=== PATIENT | female | born 1980 | race Caucasian/White ===

== ENCOUNTER 2020-06-18 22:11 | Inpatient (IN) ==
[2020-06-18] MEDS ORDERED: CEFEPIME 2,000 MG/20 ML VIAL IV STA (22:38)
[2020-06-18] MEDS ORDERED: DAPTOmycin 500 MG in SYRINGE 0 ML IV ONE (22:38)
[2020-06-18] MEDS ORDERED: ONDANSETRON INJ 2 MG/ML 2 ML VIAL IV STA (22:41)
[2020-06-18] MEDS ORDERED: SODIUM CHLORIDE 0.9% 1000ML 1,000 ML IV SCH ×3 (22:45→23:39)
[2020-06-18 22:50] LABS: Basophils # (auto) 0.02 K/uL (0-0.2); Basophils % (auto) 0.2 %; Eosinophils # (auto) 0.06 K/uL (0-0.5); Eosinophils % (auto) 0.5 %; Hematocrit (blood only) 28.7 % (37-47); Hemoglobin 9.3 g/dL (12.0-16.0); Immature Granulocytes # (auto) 0.03 K/uL (0.00-0.02); Immature Granulocytes % (auto) 0.3 %; Lymphocytes # (auto) 0.79 K/uL (1.2-3.4); Mean Corpuscular Hemoglobin 27.1 pg (25-34); Mean Corpuscular Hgb Conc 32.4 g/dL (32-36); Mean Corpuscular Volume 83.7 fL (80-100); Mean Platelet Volume 8.8 fL (7.4-10.4); Monocytes # (auto) 0.75 K/uL (0.11-0.59); Monocytes % (auto) 6.6 %; Neutrophils # (auto) 9.63 K/uL (1.4-6.5); Neutrophils % (auto) 85.4 %; Platelet Count 530 K/uL (130-400); RDW Coefficient of Variation 14.4 % (11.5-14.5); RDW Standard Deviation 44.1 fL (36.4-46.3); Red Blood Count 3.43 M/uL (4.2-5.4); White Blood Count 11.28 K/uL (4.8-10.8)
[2020-06-18] MEDS: HYDROmorphone INJ 1 MG/ML SYRINGE IV PRN ×2 (22:56→23:31)
[2020-06-18 23:01] LABS: INR 1.1 (0.9-1.1); Partial Thromboplastin Ratio 1.2; Partial Thromboplastin Time 33.9 Seconds (21.0-31.0); Prothrombin Time 11.4 Seconds (9.0-12.0)
[2020-06-18 23:04] LABS: Albumin Level 2.8 gm/dl (3.4-5.0); BUN Creatinine Ratio 17.2 (10-20); Calcium 9.3 mg/dl (8.5-10.1); Creatinine Clr Calc Pharmacy 107.6 ml/min; Est GFR (African American) 97.3; Est GFR (Non-African American) 83.9; Magnesium 1.4 mg/dl (1.8-2.4); Potassium 3.9 mmol/L (3.5-5.1)
[2020-06-18 23:07] LABS: Albumin Globulin Ratio 0.5 (0.9-2); Bilirubin,Total 0.3 mg/dl (0.2-1); Globulin 5.5 gm/dl (2.5-4.0); Total Protein 8.3 gm/dl (6.4-8.2)
[2020-06-18] MEDS ORDERED: ACETAMINOPHEN 500 MG TAB PO STA (23:27)
[2020-06-18] MEDS ORDERED: MAGNESIUM SULFATE / D5W 1 GM/100 ML BAG IV STA (23:29)
--- NOTE | 2020-06-18 23:35 | Emergency Department Note ---
Impression & Plan Sepsis, Pyelonephritis, Pelvic mass, Obstructive uropathy ED Provider Note INFORMANT: Patient ED PROVIDER(S): Sascha Louis MD CHIEF COMPLAINT: Fever PLAN: Disposition: Admitted Condition: Guarded MEDICAL DECISION MAKING: Patient presented emergency department because she has fever and abdominal pain. She was treated for sepsis given her tachycardia and fever. She was given Tylenol. IV fluids were initiated. The patient had her port accessed. Cultures were done. She was found to have a leukocytosis, anemia, and unremarkable chemistries. Her lactate was within normal limits. Procalcitonin was not significantly elevated. Urinalysis was very concerning for infection. She was treated with Zofran and Dilaudid. She was given broad-spectrum antibiotics with cefepime and daptomycin. The patient had a CT scan performed and this was very concerning for a large right pelvic mass causing obstruction on the right ureter and subsequent hydronephrosis. I did attempt to get old records from the [facility] admission. She had a consultation placed with Dr. Rios of urology and he felt that a stent was emergently needed. I also consulted with of EMR TRAINER. He noted OB consultation would be necessary as well. We discussed getting an ultrasound to further evaluate this pelvic mass. He did review the images and felt it was likely coming from the uterus. The patient was seen in the ER by Dr. Rios. I also consulted with Dr. Jerrod Ramon of the hospitalist service. He did evaluate the patient in the ER as well. He will admit the patient and specialty will consult. I did obtain old records and she was noted to have an E. coli UTI. This was concerning as it was an ESBL infection. Therefore the patient was given ertapenem IV. Triage Nursing notes reviewed and agree them. Vital Signs: reviewed and remarkable for tachycardia and fever Differential diagnosis: Viral syndrome, otitis, pharyngitis, pneumonia, influenza, meningitis, urinary tract infection, sepsis, bacteremia, as well as other pathologies. Diagnostics interpreted by me: Cardiac Monitoring: Cardiac monitoring ordered by me: The patient was placed on continuous cardiac monitoring and observed. It revealed a sinus tachycardic rhythm at 115 beats per minute without ectopy or evidence of dysrhythmia. Imaging studies: Imaging studies: Chest x-ray. Findings: A chest x-ray was performed and revealed no pneumothorax, effusion, infiltrate, pulmonary edema, free air under the diaphragm, or wide mediastinum. Mediport noted in the right upper chest. Impression: No acute disease. HPI: The patient is a 39 year old female with past medical history of colorectal cancer and ostomy who presents to the Emergency Room with complaints of fever. This started today and is persisting throughout the evening. The patient also notes the following associated symptoms, nausea, right lower quadrant abdominal pain, fatigue. The patient has found no relieving factors. Current pain is rated as 8/10. Patient has a history of colorectal cancer. She states her last chemo was 3 months ago. She has had a new port placed in the chest. It has not been accessed to this point. She did have orthopedic surgery at the beginning of this month on the left leg for a fall and fracture. She is [facility] She states she was tested negative for Covid 5 days ago. Pt denies LOC, headache, diaphoresis, visual changes, neck pain, chest pain, breathing difficulties, vomiting, back pain, melena, hematochezia, urinary symptoms, numbness, lymphadenopathy, rash, or other complaints. ROS: See above HPI for pertinent positives & negatives. A total of 10 systems reviewed and were otherwise negative. PAST MEDICAL HISTORY:See Below , colorectal cancer PAST SURGICAL HISTORY:See Below, ORIF left foot, ostomy, Mediport FAMILY HISTORY:See Below SOCIAL HISTORY:See Below, no alcohol HOME MEDICATIONS:See Below ALLERGIES:See Below VITALS:See Below PHYSICAL EXAMINATION: GENERAL: Awake, alert, uncomfortable-appearing, in no distress HENT: Normocephalic, atraumatic. Oropharynx unremarkable. EYES: Normal conjunctiva. Sclera non-icteric. NECK: Inspection normal. Non-tender. Supple. No nuchal rigidity. FROM. No masses. RESPIRATORY: Clear to auscultation. No wheezes. No rales. Normal respiratory effort. CARDIAC: Moderately tachycardic rate. Normal rhythm. No murmurs. No rubs. Extremities warm and well perfused. Pulses equal. No JVD. GI: Soft, non-distended. Ostomy noted in the right lower side. Right lower tenderness to palpation. No rebound but mild guarding. No masses. RECTAL: Deferred. MUSCULOSKELETAL: Atraumatic. Chest examination reveals no tenderness. The back is symmetrical on inspection without obvious abnormality. There is no CVA tenderness to palpation. No joint edema. LOWER EXTREMITIES: Calves are equal size bilaterally and non-tender. No discoloration. Trace edema noted. The patient's incision on the left foot looks clean dry and intact. No cellulitis. NEURO: Normal sensorium. No sensory or motor deficits noted. SKIN: No rash or jaundice noted. ED COURSE: Critical Care: I have personally spent greater than 76 minutes of critical care time in the direct management of this patient. This includes bedside care, interpretation of diagnostic studies, and testing, discussion with consultants, patient, and family members, and other required patient management activities. These minutes are in excess of all separately billable procedures. Sascha Louis MD Past Med/Surg History Medical History (Updated 06/19/20 @ 02:16 by Sascha Louis MD) Colorectal cancer Crohn disease Pulmonary embolism Social History Smoking Status: Never smoker Preferred Language: Danish Feels Safe at Home: Yes Allergies Allergies Allergy/AdvReac Type Severity Reaction Status Date / Time vancomycin Allergy Unknown Throat Verified 06/18/20 22:43 closes ibuprofen AdvReac Unknown Crohns Verified 06/18/20 22:43 flare Home Meds Home Medications Medication Instructions Recorded Confirmed acetaminophen 650 mg PO Q4H PRN 06/18/20 06/18/20 alprazolam 0.25 mg PO TID PRN 06/18/20 06/18/20 amlodipine 5 mg PO DAILY 06/18/20 06/18/20 ascorbic acid (vitamin C) 500 mg PO BID 06/18/20 06/18/20 azathioprine 50 mg PO DAILY 06/18/20 06/18/20 bisacodyl 10 mg DC DAILY PRN 06/18/20 06/18/20 cholecalciferol (vitamin D3) 50 mcg PO DAILY 06/18/20 06/18/20 [Vitamin D3] clotrimazole 1 appful VAGINAL HS 06/18/20 06/18/20 docusate sodium 100 mg PO BID 06/18/20 06/18/20 enoxaparin 120 mg SUBCUT BID 06/18/20 06/18/20 famotidine 20 mg PO DAILY 06/18/20 06/18/20 fluoxetine 60 mg PO DAILY 06/18/20 06/18/20 gabapentin 200 mg PO DAILY 06/18/20 06/18/20 levothyroxine 100 mcg PO DAILY 06/18/20 06/18/20 lisinopril 20 mg PO DAILY 06/18/20 06/18/20 magnesium hydroxide [Milk of 30 ml PO DAILY PRN 06/18/20 06/18/20 Magnesia] melatonin 3 mg PO HS 06/18/20 06/18/20 norethindrone acetate 5 mg PO DAILY 06/18/20 06/18/20 nystatin 1 applic TOPICAL BID PRN 06/18/20 06/18/20 oxycodone 20 mg PO Q4H PRN 06/18/20 06/18/20 oxycodone 40 mg PO Q12H 06/18/20 06/18/20 pantoprazole 40 mg PO DAILYBB 06/18/20 06/18/20 polyethylene glycol 3350 17 g PO DAILY PRN 06/18/20 06/18/20 prochlorperazine maleate 5 mg PO Q6H PRN 06/18/20 06/18/20 sennosides-docusate sodium 1 tab PO DIRECTED PRN 06/18/20 06/18/20 [Senokot-S] sodium phosphates [Fleet Enema] 133 ml DC DAILY PRN 06/18/20 06/18/20 trazodone 200 mg PO HS PRN 06/18/20 06/18/20 zinc sulfate 220 mg PO DAILY 06/18/20 06/18/20 Results & Data (ED) Vital Signs Vital Signs - 24 hr 06/18/20 22:42 06/18/20 22:50 06/18/20 23:00 Temperature 39.5 C H Temperature Source Oral Pulse Rate 123 H Pulse Rate [Right Finger] 130 H 116 H Pulse Rate from SpO2 Sensor Pulse Rhythm Regular Pulse Rhythm [Right Finger] Regular Regular Pulse Strength Normal Pulse Strength [Right Finger] Normal Normal Respiratory Rate 22 22 20 Respiratory Effort / Characteristics Non-Labored Non-Labored Spontaneous Respiratory Depth Normal Blood Pressure 126/93 Blood Pressure [Right Arm] 126/93 126/93 Blood Pressure Mean 104 Blood Pressure Mean [Right Arm] 104 104 Blood Pressure Position Sitting Pulse Oximetry 97 97 97 Oxygen Delivery Method Room Air Room Air Room Air Sepsis Recent Fever Within 48 Hours Yes Sepsis New/Unexplained Change in Mental Status N/A Sepsis Action Taken by Nursing Physician Notified 06/18/20 23:43 06/19/20 00:00 06/19/20 00:30 Temperature Temperature Source Pulse Rate 115 H 123 H Pulse Rate [Right Finger] Pulse Rate from SpO2 Sensor 115 H 124 H Pulse Rhythm Pulse Rhythm [Right Finger] Pulse Strength Pulse Strength [Right Finger] Respiratory Rate 15 15 Respiratory Effort / Characteristics Respiratory Depth Blood Pressure 126/93 121/80 136/74 Blood Pressure [Right Arm] Blood Pressure Mean 108 99 99 Blood Pressure Mean [Right Arm] Blood Pressure Position Pulse Oximetry 95 96 Oxygen Delivery Method Sepsis Recent Fever Within 48 Hours Sepsis New/Unexplained Change in Mental Status Sepsis Action Taken by Nursing 06/19/20 00:55 Temperature 39.2 C H Temperature Source Oral Pulse Rate Pulse Rate [Right Finger] Pulse Rate from SpO2 Sensor Pulse Rhythm Pulse Rhythm [Right Finger] Pulse Strength Pulse Strength [Right Finger] Respiratory Rate Respiratory Effort / Characteristics Respiratory Depth Blood Pressure Blood Pressure [Right Arm] Blood Pressure Mean Blood Pressure Mean [Right Arm] Blood Pressure Position Pulse Oximetry Oxygen Delivery Method Sepsis Recent Fever Within 48 Hours Sepsis New/Unexplained Change in Mental Status Sepsis Action Taken by Nursing Laboratory Data Result diagrams: 06/18/20 22:35 06/18/20 22:35 Lab Results 06/18/20 06/18/20 06/18/20 Range/Units 22:35 22:35 22:35 WBC 11.28 H (4.8-10.8) K/uL RBC 3.43 L (4.2-5.4) M/uL Hgb 9.3 L (12.0-16.0) g/dL Hct 28.7 L (37-47) % MCV 83.7 (80-100) fL MCH 27.1 (25-34) pg MCHC 32.4 (32-36) g/dL RDW Std Deviation 44.1 (36.4-46.3) fL RDW Coeff of Angélica 14.4 (11.5-14.5) % Plt Count 530 H (130-400) K/uL MPV 8.8 (7.4-10.4) fL Immature Gran % (Auto) 0.3 % Neut % (Auto) 85.4 % Lymph % (Auto) 7.0 % Newton % (Auto) 6.6 % Eos % (Auto) 0.5 % Baso % (Auto) 0.2 % Neut # (Auto) 9.63 H (1.4-6.5) K/uL Lymph # (Auto) 0.79 L (1.2-3.4) K/uL Newton # (Auto) 0.75 H (0.11-0.59) K/uL Eos # (Auto) 0.06 (0-0.5) K/uL Baso # (Auto) 0.02 (0-0.2) K/uL Immature Gran # (Auto) 0.03 H (0.00-0.02) K/uL PT 11.4 (9.0-12.0) Seconds INR 1.1 (0.9-1.1) APTT 33.9 H (21.0-31.0) Seconds PTT Ratio 1.2 Sodium (136-145) mmol/L Potassium (3.5-5.1) mmol/L Chloride (98-107) mmol/L Carbon Dioxide (21-32) mmol/L Anion Gap (3-11) BUN (7-18) mg/dl Creatinine (0.6-1.2) mg/dl Est Cr Clr Drug Dosing ml/min Est GFR ( Amer) Est GFR (Non-Af Amer) BUN/Creatinine Ratio (10-20) Glucose (70-99) mg/dl Lactate (0.4-2.0) mmol/L Calcium (8.5-10.1) mg/dl Magnesium (1.8-2.4) mg/dl Total Bilirubin (0.2-1) mg/dl AST (15-37) U/L ALT (12-78) U/L Alkaline Phosphatase (45-117) U/L Total Protein (6.4-8.2) gm/dl Albumin (3.4-5.0) gm/dl Globulin (2.5-4.0) gm/dl Albumin/Globulin Ratio (0.9-2) Procalcitonin 0.09 (0-0.5) ng/ml HCG, Qual (Negative) Urine Color Urine Appearance (Clear) Urine pH (4.5-7.5) Ur Specific Jameson (1.000-1.030) Urine Protein (Negative) Urine Glucose (UA) (Negative) Urine Ketones (Negative) Urine Blood (Negative) Urine Nitrite (Negative) Urine Bilirubin (Negative) Urine Urobilinogen (Negative) Ur Leukocyte Esterase (Negative) Urine WBC (Auto) (0-5) /hpf Urine RBC (Auto) (0-4) /hpf U Hyaline Cast (Auto) (0-5) /lpf U Epithel Cells (Auto) (0-5) /lpf Urine Bacteria (Auto) (Negative) COVID-19 Eval Order SARS-CoV-2, RNA, NAAT (NEGATIVE) 06/18/20 06/18/20 06/18/20 Range/Units 22:35 22:35 22:35 WBC (4.8-10.8) K/uL RBC (4.2-5.4) M/uL Hgb (12.0-16.0) g/dL Hct (37-47) % MCV (80-100) fL MCH (25-34) pg MCHC (32-36) g/dL RDW Std Deviation (36.4-46.3) fL RDW Coeff of Angélica (11.5-14.5) % Plt Count (130-400) K/uL MPV (7.4-10.4) fL Immature Gran % (Auto) % Neut % (Auto) % Lymph % (Auto) % Newton % (Auto) % Eos % (Auto) % Baso % (Auto) % Neut # (Auto) (1.4-6.5) K/uL Lymph # (Auto) (1.2-3.4) K/uL Newton # (Auto) (0.11-0.59) K/uL Eos # (Auto) (0-0.5) K/uL Baso # (Auto) (0-0.2) K/uL Immature Gran # (Auto) (0.00-0.02) K/uL PT (9.0-12.0) Seconds INR (0.9-1.1) APTT (21.0-31.0) Seconds PTT Ratio Sodium 134 L (136-145) mmol/L Potassium 3.9 (3.5-5.1) mmol/L Chloride 103 (98-107) mmol/L Carbon Dioxide 23 (21-32) mmol/L Anion Gap 8.0 (3-11) BUN 15 (7-18) mg/dl Creatinine 0.87 (0.6-1.2) mg/dl Est Cr Clr Drug Dosing 107.6 ml/min Est GFR ( Amer) 97.3 Est GFR (Non-Af Amer) 83.9 BUN/Creatinine Ratio 17.2 (10-20) Glucose 123 H (70-99) mg/dl Lactate 1.2 (0.4-2.0) mmol/L Calcium 9.3 (8.5-10.1) mg/dl Magnesium 1.4 L (1.8-2.4) mg/dl Total Bilirubin 0.3 (0.2-1) mg/dl AST 31 (15-37) U/L ALT 30 (12-78) U/L Alkaline Phosphatase 180 H (45-117) U/L Total Protein 8.3 H (6.4-8.2) gm/dl Albumin 2.8 L (3.4-5.0) gm/dl Globulin 5.5 H (2.5-4.0) gm/dl Albumin/Globulin Ratio 0.5 L (0.9-2) Procalcitonin (0-0.5) ng/ml HCG, Qual Negative (Negative) Urine Color Urine Appearance (Clear) Urine pH (4.5-7.5) Ur Specific Jameson (1.000-1.030) Urine Protein (Negative) Urine Glucose (UA) (Negative) Urine Ketones (Negative) Urine Blood (Negative) Urine Nitrite (Negative) Urine Bilirubin (Negative) Urine Urobilinogen (Negative) Ur Leukocyte Esterase (Negative) Urine WBC (Auto) (0-5) /hpf Urine RBC (Auto) (0-4) /hpf U Hyaline Cast (Auto) (0-5) /lpf U Epithel Cells (Auto) (0-5) /lpf Urine Bacteria (Auto) (Negative) COVID-19 Eval Order SARS-CoV-2, RNA, NAAT (NEGATIVE) 06/18/20 06/19/20 06/19/20 Range/Units 23:27 00:54 00:54 WBC (4.8-10.8) K/uL RBC (4.2-5.4) M/uL Hgb (12.0-16.0) g/dL Hct (37-47) % MCV (80-100) fL MCH (25-34) pg MCHC (32-36) g/dL RDW Std Deviation (36.4-46.3) fL RDW Coeff of Angélica (11.5-14.5) % Plt Count (130-400) K/uL MPV (7.4-10.4) fL Immature Gran % (Auto) % Neut % (Auto) % Lymph % (Auto) % Newton % (Auto) % Eos % (Auto) % Baso % (Auto) % Neut # (Auto) (1.4-6.5) K/uL Lymph # (Auto) (1.2-3.4) K/uL Newton # (Auto) (0.11-0.59) K/uL Eos # (Auto) (0-0.5) K/uL Baso # (Auto) (0-0.2) K/uL Immature Gran # (Auto) (0.00-0.02) K/uL PT (9.0-12.0) Seconds INR (0.9-1.1) APTT (21.0-31.0) Seconds PTT Ratio Sodium (136-145) mmol/L Potassium (3.5-5.1) mmol/L Chloride (98-107) mmol/L Carbon Dioxide (21-32) mmol/L Anion Gap (3-11) BUN (7-18) mg/dl Creatinine (0.6-1.2) mg/dl Est Cr Clr Drug Dosing ml/min Est GFR ( Amer) Est GFR (Non-Af Amer) BUN/Creatinine Ratio (10-20) Glucose (70-99) mg/dl Lactate (0.4-2.0) mmol/L Calcium (8.5-10.1) mg/dl Magnesium (1.8-2.4) mg/dl Total Bilirubin (0.2-1) mg/dl AST (15-37) U/L ALT (12-78) U/L Alkaline Phosphatase (45-117) U/L Total Protein (6.4-8.2) gm/dl Albumin (3.4-5.0) gm/dl Globulin (2.5-4.0) gm/dl Albumin/Globulin Ratio (0.9-2) Procalcitonin (0-0.5) ng/ml HCG, Qual (Negative) Urine Color Yellow Urine Appearance Cloudy A (Clear) Urine pH 5.0 (4.5-7.5) Ur Specific Jameson 1.017 (1.000-1.030) Urine Protein 2+ H (Negative) Urine Glucose (UA) Negative (Negative) Urine Ketones Negative (Negative) Urine Blood 3+ H (Negative) Urine Nitrite Positive A (Negative) Urine Bilirubin Negative (Negative) Urine Urobilinogen Negative (Negative) Ur Leukocyte Esterase 1+ H (Negative) Urine WBC (Auto) 10-30 H (0-5) /hpf Urine RBC (Auto) 0-4 (0-4) /hpf U Hyaline Cast (Auto) 1-5 (0-5) /lpf U Epithel Cells (Auto) >30 H (0-5) /lpf Urine Bacteria (Auto) 4+ H (Negative) COVID-19 Eval Order Covid19 [facility] SARS-CoV-2, RNA, NAAT NEGATIVE (NEGATIVE) Administered Medications Hydromorphone HCl (Hydromorphone Inj 1 Mg/Ml Syringe) 1 mg IV Q15M PRN PRN Reason: Pain Stop: 07/02/20 22:40 Last Admin: 06/19/20 01:01 Dose: 1 mg Documented by: [id number] Admin: 06/19/20 00:09 Dose: 1 mg Documented by: [id number] Admin: 06/18/20 23:31 Dose: 1 mg Documented by: [id number] Admin: 06/18/20 22:56 Dose: 1 mg Documented by: [id number] Sodium Chloride (Nss 1000ml) 1,000 mls @ 150 mls/hr IV .Q6H40M [facility] Stop: 07/18/20 22:44 Last Admin: 06/18/20 23:59 Dose: 150 mls/hr Documented by: [id number] Discontinued Medications Acetaminophen (Acetaminophen 500 Mg Tab) 1,000 mg PO NOW STA Stop: 06/18/20 23:28 Last Admin: 06/18/20 23:34 Dose: 1,000 mg Documented by: [id number] Sodium Chloride (Nss 1000ml) 1,000 mls @ 999 mls/hr IV .Q1H1M [facility] Stop: 06/18/20 23:39 Last Infusion: 06/18/20 23:58 Dose: 0 mls/hr Documented by: [id number] Admin: 06/18/20 22:57 Dose: 999 mls/hr Documented by: [id number] Sodium Chloride (Nss 1000ml) 1,000 mls @ 999 mls/hr IV .Q1H1M [facility] Stop: 06/19/20 00:39 Last Infusion: 06/18/20 23:58 Dose: 0 mls/hr Documented by: [id number] Admin: 06/18/20 22:57 Dose: 999 mls/hr Documented by: [id number] Cefepime HCl (Maxipime) 2,000 mg in 20 mls @ 5 mls/min IV NOW STA; Protocol Stop: 06/18/20 22:41 Last Admin: 06/18/20 23:06 Dose: 5 mls/min Documented by: [id number] Daptomycin 500 mg/ Syringe 10 mls @ 5 mls/min IV ONE ONE; Protocol Stop: 06/18/20 22:39 Last Admin: 06/18/20 23:06 Dose: 5 mls/min Documented by: [id number] Magnesium Sulfate/Dextrose (Magnesium Sulfate / D5w) 1 gm in 100 mls @ 100 mls/hr IV NOW STA Stop: 06/19/20 00:28 Last Infusion: 06/19/20 01:02 Dose: 0 mls/hr Documented by: [id number] Admin: 06/18/20 23:59 Dose: 100 mls/hr Documented by: [id number] Ertapenem (Invanz) 10 mls @ 2 mls/min IV NOW STA Stop: 06/19/20 01:45 Last Admin: 06/19/20 01:50 Dose: 2 mls/min Documented by: [id number] Ioversol (Ioversol 100ml) 100 ml IV ONCE ONE Stop: 06/18/20 23:58 Last Admin: 06/18/20 23:58 Dose: 92 ml Documented by: [id number] Ondansetron HCl (Ondansetron Inj 2 Mg/Ml 2 Ml Vial) 4 mg IV NOW STA Stop: 06/18/20 22:42 Last Admin: 06/18/20 22:56 Dose: 4 mg Documented by: [id number] Ondansetron HCl (Ondansetron Inj 2 Mg/Ml 2 Ml Vial) Confirm Administered Dose 4 mg .ROUTE .STK-MED ONE Stop: 06/19/20 00:58 Last Admin: 06/19/20 01:00 Dose: 4 mg Documented by: [id number] Ondansetron HCl (Ondansetron Inj 2 Mg/Ml 2 Ml Vial) 4 mg IV NOW STA Stop: 06/19/20 01:08 Last Admin: 06/19/20 01:07 Dose: Not Given Documented by: [id number] Discharge Plan Visit Data Chief Complaint: Fever Stated Complaint: FEVER ED Provider: Sascha Louis Discharge Problem: Sepsis, Pyelonephritis, Pelvic mass, Obstructive uropathy Discharge Instructions Interventions: ED Discharge Assessment Last Done: 06/19/20 01:44 Forms Stand Alone Forms: [facility] Prescriptions Prescriptions: No Action acetaminophen 325 mg Tablet 650 mg PO Q4H PRN (Reason: Pain) RF: 0 prochlorperazine maleate 5 mg Tablet 5 mg PO Q6H PRN (Reason: Nausea And Vomiting) RF: 0 lisinopril 20 mg Tablet 20 mg PO DAILY RF: 0 sennosides-docusate sodium [Senokot-S] 8.6-50 mg Tablet 1 tab PO DIRECTED PRN (Reason: Constipation) RF: 0 oxycodone 40 mg Tablet Extended Release 12 Hr 40 mg PO Q12H RF: 0 clotrimazole 1 % Cream 1 appful VAGINAL HS RF: 0 azathioprine 50 mg Tablet 50 mg PO DAILY RF: 0 melatonin 3 mg Tablet 3 mg PO HS RF: 0 amlodipine 5 mg Tablet 5 mg PO DAILY RF: 0 levothyroxine 100 mcg Tablet 100 mcg PO DAILY RF: 0 alprazolam 0.25 mg Tablet 0.25 mg PO TID PRN (Reason: Anxiety) RF: 0 famotidine 20 mg Tablet 20 mg PO DAILY RF: 0 magnesium hydroxide [Milk of Magnesia] 400 mg/5 mL Suspension 30 ml PO DAILY PRN (Reason: Constipation) RF: 0 ascorbic acid (vitamin C) 500 mg Tablet 500 mg PO BID RF: 0 trazodone 100 mg Tablet 200 mg PO HS PRN (Reason: Insomnia) RF: 0 bisacodyl 10 mg Suppository 10 mg DC DAILY PRN (Reason: Constipation) RF: 0 pantoprazole 40 mg Tablet,Delayed Release (Dr/Ec) 40 mg PO DAILYBB RF: 0 Fleet Enema 19-7 gram/118 mL Enema 133 ml DC DAILY PRN (Reason: Constipation) RF: 0 docusate sodium 100 mg Capsule 100 mg PO BID RF: 0 norethindrone acetate 5 mg Tablet 5 mg PO DAILY RF: 0 gabapentin 100 mg Capsule 200 mg PO DAILY RF: 0 nystatin 100,000 unit/gram Powder 1 applic TOPICAL BID PRN (Reason: Rash) RF: 0 polyethylene glycol 3350 17 gram/dose Powder 17 g PO DAILY PRN (Reason: Constipation) RF: 0 zinc sulfate 220 mg Capsule 220 mg PO DAILY RF: 0 fluoxetine 20 mg Capsule 60 mg PO DAILY RF: 0 oxycodone 5 mg Tablet 20 mg PO Q4H PRN (Reason: Pain) RF: 0 enoxaparin 120 mg/0.8 mL Syringe 120 mg SUBCUT BID RF: 0 cholecalciferol (vitamin D3) [Vitamin D3] 50 mcg (2,000 unit) Capsule 50 mcg PO DAILY RF: 0 Referrals Referrals: Nataly Limon PA-C [Primary Care Provider] -
[2020-06-18 23:44] LABS: Appearance Urine Cloudy (Clear); Bacteria Urine Automated 4+ (Negative); Bilirubin Urine Negative (Negative); Blood Urine 3+ (Negative); Color Urine Yellow; Epithelial Cell Urine Auto >30 /lpf (0-5); Glucose Urine UA Negative (Negative); Ketones Urine Negative (Negative); Leukocyte Esterase Urine 1+ (Negative); Nitrite Urine Positive (Negative); Protein Urine 2+ (Negative); RBC Urine Automated 0-4 /hpf (0-4); Specific Gravity Urine 1.017 (1.000-1.030); Urobilinogen Urine Negative (Negative)
[2020-06-18] MEDS ORDERED: IOVERSOL 100ml IV ONE (23:57)
[2020-06-19] MEDS: HYDROmorphone INJ 1 MG/ML SYRINGE IV PRN ×2 (00:09→01:01)
[2020-06-19] MEDS ORDERED: ONDANSETRON INJ 2 MG/ML 2 ML VIAL ONE ×2 (00:57→02:30)
[2020-06-19] MEDS ORDERED: ONDANSETRON INJ 2 MG/ML 2 ML VIAL IV STA (01:07)
[2020-06-19] MEDS ORDERED: ePHEDrine sulfate 50 MG/ML AMP IV PRN (01:32)
[2020-06-19] MEDS ORDERED: fentaNYL citrate 100 MCG/2 ML VIAL IV PRN (01:32)
[2020-06-19] MEDS ORDERED: ONDANSETRON INJ 2 MG/ML 2 ML VIAL IV PRN (01:32)
[2020-06-19] MEDS ORDERED: ATROPINE SULFATE 0.1 MG/ML 10ML SYR IV PRN (01:32)
[2020-06-19] MEDS ORDERED: PROPOFOL IV EMULSION 10 MG/ML 20 ML VIAL IV ONE ×2 (01:39→02:30)
--- NOTE | 2020-06-19 01:40 | Urology Consultation ---
Date of Consultation June 19, 2020 Assessment & Plan (1) Sepsis: (2) Pelvic mass: (3) Obstructive uropathy: Patient acutely ill with significant fevers, tachycardia, hypertension, and ill feelings with acute UTI-like symptoms and significant obstruction of the ureter. Imaging was reviewed interpreted by myself. Patient appears to have large fluid collection versus mass with fluid versus compressing lesion in the right pelvis causing compression of the bladder with likely compression of the right ureter. No significant hydroureteronephrosis down to the region of the mass/lesion. Significant perinephric stranding. Patient has had significant UTI issues over the last few months. Has a very complex medical and surgical history which was reviewed above with an extremely complicated set of issues secondary to colorectal malignancy. Patient also has recent trauma with left lower extremity fracture. Patient is being admitted to the ICU. Is undergoing resuscitation and management with broad-spectrum antibiotics for overall good coverage of possible resistant infection with critical management and close monitoring. Patient has likely external compression obstruction of the right ureter and collecting system. Discussed possible issues related to pyelonephritis with a sending infection and possibility for development of bacteremia. Patient is undergoing cultures. Discussed options moving forward. Discussed decompression of bladder as well as decompression of the collecting system on the right. Discussed options for this. Risks and benefits discussed at length for procedure. These include bleeding, infection, injury to surrounding tissues or organs, and risks associated with anesthesia. Patient states understanding and agrees to proceed. Will sign consent and proceed with urgent procedure. Cystoscopy with right stent placement History of Present Illness History of Present Illness Urgent/emergent consultation for acutely ill and septic patient with UTI/Pyelo, discomfort, and ill feelings. Patient developed sudden onset of pain into flank going down and radiating into groin and back in waves comes and goes. Can be severe at times. Obstruction seems secondary to large pelvic fluid filled appearing mass/collection within the right pelvis causing compression of the ureter and bladder. Patient has a significant history of malignancy with multiple interventions and resection and diverting colostomy secondary to colon cancer. Has had multiple episodes of likely pyelonephritis versus sepsis from urinary source over the last few months. Has had over 8 per patient. Has not had full work-up for these issues and had been treated with antibiotics which did seem to improve issues. Was recently admitted in outlying facility due to a injury of the foot which required treatment due to fracture. Patient was in a rehab setting and developed the severe fevers and worsening overall illness and was transferred urgently for assessment in our ER. Discussed and reviewed patient's personal medical, surgical, social, and family history for any history of issues, infections, and disease. Also, discussed patient's medical/surgery history especially related to any history of urinary issues or stone disease. Has not had previous intervention on the system but has had per patient over 39 different surgeries most of which were abdominal and related to her malignancy. No family history of malignancy. Patient is undergoing intense/critical management for acute illness and is being admitted to undergo critical care. Hospitalist/ICU team has admitted and is undergoing observation with broad spectrum IV antibiotics. Allergies Allergy/AdvReac Type Severity Reaction Status Date / Time vancomycin Allergy Unknown Throat Verified 06/18/20 22:43 closes ibuprofen AdvReac Unknown Crohns Verified 06/18/20 22:43 flare Home Medications Medication Instructions Recorded Confirmed Type acetaminophen 650 mg PO Q4H PRN 06/18/20 06/18/20 History alprazolam 0.25 mg PO TID PRN 06/18/20 06/18/20 History amlodipine 5 mg PO DAILY 06/18/20 06/18/20 History ascorbic acid (vitamin C) 500 mg PO BID 06/18/20 06/18/20 History azathioprine 50 mg PO DAILY 06/18/20 06/18/20 History bisacodyl 10 mg OH DAILY PRN 06/18/20 06/18/20 History cholecalciferol (vitamin D3) 50 mcg PO DAILY 06/18/20 06/18/20 History [Vitamin D3] clotrimazole 1 appful VAGINAL HS 06/18/20 06/18/20 History docusate sodium 100 mg PO BID 06/18/20 06/18/20 History enoxaparin 120 mg SUBCUT BID 06/18/20 06/18/20 History famotidine 20 mg PO DAILY 06/18/20 06/18/20 History fluoxetine 60 mg PO DAILY 06/18/20 06/18/20 History gabapentin 200 mg PO DAILY 06/18/20 06/18/20 History levothyroxine 100 mcg PO DAILY 06/18/20 06/18/20 History lisinopril 20 mg PO DAILY 06/18/20 06/18/20 History magnesium hydroxide [Milk of 30 ml PO DAILY PRN 06/18/20 06/18/20 History Magnesia] melatonin 3 mg PO HS 06/18/20 06/18/20 History norethindrone acetate 5 mg PO DAILY 06/18/20 06/18/20 History nystatin 1 applic TOPICAL BID PRN 06/18/20 06/18/20 History oxycodone 20 mg PO Q4H PRN 06/18/20 06/18/20 History oxycodone 40 mg PO Q12H 06/18/20 06/18/20 History pantoprazole 40 mg PO DAILYBB 06/18/20 06/18/20 History polyethylene glycol 3350 17 g PO DAILY PRN 06/18/20 06/18/20 History prochlorperazine maleate 5 mg PO Q6H PRN 06/18/20 06/18/20 History sennosides-docusate sodium 1 tab PO DIRECTED PRN 06/18/20 06/18/20 History [Senokot-S] sodium phosphates [Fleet Enema] 133 ml OH DAILY PRN 06/18/20 06/18/20 History trazodone 200 mg PO HS PRN 06/18/20 06/18/20 History zinc sulfate 220 mg PO DAILY 06/18/20 06/18/20 History Patient History Social History Smoking Status: Never smoker Preferred Language: Thai Feels Safe at Home: Yes Review of Systems Review of Systems: All systems reviewed & are unremarkable except as noted in HPI & below Limited due to patient illness. Significant UTI symptoms. Physical Exam Physical Exam: General: Acutely ill. Undergoing critical care management for acute severe infection HEENT: Normocephalic Atraumatic. Inspection normal. Cranial Nerves 2-12 Grossly intact. Nares are clear. Neck is supple. Normal inspection of face. Normal inspection of neck. Neurologic: No deficits on inspection. Baseline for motor function and sensory. Psychologic: Anxious, acute delirium secondary to illness Respiratory: Mild labored. No use of accessory muscles. No severe dyspnea. Cardiovascular: tachycardia Skin: Leeper and Dry. No rashes or visible lesions. Febrile Extremities: Moving without issues. No motor deficits on inspection. Left foot/leg cast/splint Lymphatics: Mild edema Abdomen: Obese. Mildly distended. No rebound or guarding. Mild suprapubic/flank tenderness. Multiple scars from prior surgery. Colostomy. Results & Data ([facility]) Vital Signs (Past 12 Hours) Vital Signs Temp Pulse Pulse Resp BP BP Pulse Ox 06/19/20 00:55 39.2 C H 06/19/20 00:30 123 H 15 136/74 96 06/19/20 00:00 115 H 15 121/80 95 06/18/20 23:43 126/93 06/18/20 23:00 116 H 20 126/93 97 06/18/20 22:50 130 H 22 126/93 97 06/18/20 22:42 39.5 C H 123 H 22 126/93 97 PG Care Time/CCT Total # of Minutes Spent Total Time Spent with Patient: Total time spent is greater than 50% in coordination of care (as documented) at patient's floor/unit and/or counseling patient: Coding Level of Care Code 38617 Inpt Consult Level 5 Diagnoses Sepsis A41.9 Pelvic mass R19.00 Obstructive uropathy N13.9
[2020-06-19] MEDS ORDERED: ERTAPENEM SODIUM 10 ML IV STA (01:41)
[2020-06-19] MEDS ORDERED: MIDAZOLAM HCL 1 MG/ML 2ML VIAL ONE ×2 (01:42→02:10)
[2020-06-19] MEDS ORDERED: fentaNYL citrate 100 MCG/2 ML VIAL ONE ×2 (01:42→02:19)
--- NOTE | 2020-06-19 01:44 | History & Physical Report ---
Date of Service June 19, 2020 Assessment & Plan (1) Pyelonephritis: Pyelonephritis secondary to obstructive uropathy associated with right adnexal mass/status post acute surgery by urology and ureteral stent- Daptomycin and cefepime per an empiric septic protocol NSS 100 mils per hour Consult urology Dr. Gabriel Singh from [facility] was consulted by the ED regarding right lower quadrant mass Present on Admission?: Yes (2) Obstructive uropathy: See above Present on Admission?: Yes (3) Pelvic mass: Consult [facility] Present on Admission?: Yes (4) Pulmonary embolism: Holding therapeutic Lovenox due to procedures being performed Present on Admission?: Yes (5) Crohn disease: Continue usual meds Present on Admission?: Yes (6) Hypothyroidism (acquired): Hold levothyroxine Present on Admission?: Yes (7) Anxiety with depression: Continue usual oral meds Present on Admission?: Yes (8) Hypertension: Holding antihypertensives as she has been relatively hypotensive in the ED Present on Admission?: Yes (9) Chronic pain syndrome: On graded dosings of oxycodone, with Dilaudid IV for breakthrough Present on Admission?: Yes (10) Colorectal cancer: History of Present Illness Chief Complaint: The patient presents to the emergency department with complaint of right lower quadrant and right-sided abdominal pain and fever. Primary Care Provider: Nataly Limon PA-C The patient is a 39-year-old female with a past medical history including sepsis, UTI, bacteremia, colon cancer, Crohn's disease, history of pulmonary embolism, kidney stones, morbid obesity, anxiety, hypertension, depression, peripheral neuropathy, hypothyroidism, chronic pain syndrome and insomnia. She presents to the emergency department with complaint of worsening right-sided abdominal pain and right lower quadrant pain along with fever. She had been admitted to [facility] from 05/24/20-06/13/2020 with acute sepsis due to acute UTI with bacteremia. During that admission she reports that she was told she had a mass in her right lower quadrant that might possibly need to be drained, and that IR was not an option, and that it would likely need to have surgical drainage. Work-up in the emergency department tonight included a CT scan of abdomen and pelvis that showed moderate right hydronephrosis and hydroureter secondary to a large lobulated mixed density solid and cystic lesion measuring 11 x 13 x 10 cm in the right adnexa separate from the uterus and bladder probably arising from the right ovary, with differential diagnosis including a large hemorrhagic ovarian cyst versus malignancy, with ovarian torsion not excluded. An ultra sound of pelvis and endovaginal could still not exclude ovarian torsion. Patient was taken emergently to the OR by urology Dr. Rios for ureteral stent placement. Allergies Allergy/AdvReac Type Severity Reaction Status Date / Time vancomycin Allergy Unknown Throat Verified 06/18/20 22:43 closes ibuprofen AdvReac Unknown Crohns Verified 06/18/20 22:43 flare Home Medications Medication Instructions Recorded Confirmed Type acetaminophen 650 mg PO Q4H PRN 06/18/20 06/18/20 History alprazolam 0.25 mg PO TID PRN 06/18/20 06/18/20 History amlodipine 5 mg PO DAILY 06/18/20 06/18/20 History ascorbic acid (vitamin C) 500 mg PO BID 06/18/20 06/18/20 History azathioprine 50 mg PO DAILY 06/18/20 06/18/20 History bisacodyl 10 mg NC DAILY PRN 06/18/20 06/18/20 History cholecalciferol (vitamin D3) 50 mcg PO DAILY 06/18/20 06/18/20 History [Vitamin D3] clotrimazole 1 appful VAGINAL HS 06/18/20 06/18/20 History docusate sodium 100 mg PO BID 06/18/20 06/18/20 History enoxaparin 120 mg SUBCUT BID 06/18/20 06/18/20 History famotidine 20 mg PO DAILY 06/18/20 06/18/20 History fluoxetine 60 mg PO DAILY 06/18/20 06/18/20 History gabapentin 200 mg PO DAILY 06/18/20 06/18/20 History levothyroxine 100 mcg PO DAILY 06/18/20 06/18/20 History lisinopril 20 mg PO DAILY 06/18/20 06/18/20 History magnesium hydroxide [Milk of 30 ml PO DAILY PRN 06/18/20 06/18/20 History Magnesia] melatonin 3 mg PO HS 06/18/20 06/18/20 History norethindrone acetate 5 mg PO DAILY 06/18/20 06/18/20 History nystatin 1 applic TOPICAL BID PRN 06/18/20 06/18/20 History oxycodone 20 mg PO Q4H PRN 06/18/20 06/18/20 History oxycodone 40 mg PO Q12H 06/18/20 06/18/20 History pantoprazole 40 mg PO DAILYBB 06/18/20 06/18/20 History polyethylene glycol 3350 17 g PO DAILY PRN 06/18/20 06/18/20 History prochlorperazine maleate 5 mg PO Q6H PRN 06/18/20 06/18/20 History sennosides-docusate sodium 1 tab PO DIRECTED PRN 06/18/20 06/18/20 History [Senokot-S] sodium phosphates [Fleet Enema] 133 ml NC DAILY PRN 06/18/20 06/18/20 History trazodone 200 mg PO HS PRN 06/18/20 06/18/20 History zinc sulfate 220 mg PO DAILY 06/18/20 06/18/20 History Past Med/Surg History Medical History (Updated 06/19/20 @ 06:58 by Jerrod Ramon MD) Colorectal cancer Crohn disease Pulmonary embolism Social History Smoking Status: Never smoker Hx Alcohol Use: Yes Alcohol type: wine Hx Substance Use: No Preferred Language: Kinyarwanda Communication Ability: Effective Translator Interpreter Required: No Beliefs That Will Affect Care: None Current Living Situation: Family Other Information That Helps Us Care for You: No Feels Safe at Home: Yes Safety Concerns: Feels Safe At This Time Assistive Devices: Glasses and Wheelchair Review of Systems Review of Systems: The patient denies chest pain, palpitations, shortness of breath, dyspnea on exertion, cough, lower extremity swelling, sore throat, vomiting, blood in urine or stool, lightheadedness, dizziness, headache, memory loss, loss of consciousness, rash, abnormal bruising or bleeding, imbalance, focal or generalized weakness, numbness or tingling in arms or legs, neck pain, or night sweats. The review of systems is otherwise negative other than for that already noted above, and at least 10 systems have been reviewed. Physical Exam Physical Exam: The patient is awake, alert and oriented 3, well developed and well nourished, normocephalic and atraumatic, lying in bed and in no acute distress. HEENT--PERRL, EOMI, mucous membranes and oropharynx dry. Neck--supple. No JVD. No bruits. Thyroid normal, trachea midline, no adenopathy. Heart--normal S1 and S2. No murmurs, rubs or gallops. Lungs--clear bilaterally, no respiratory distress, no accessory muscle use. Abdomen--normal bowel sounds and soft. Tenderness right lower and lateral quadrants. Nondistended. Extremities--no cyanosis or clubbing. No edema. Dermatologic--normal skin turgor, normal color, no abnormal lymph nodes, no rash. Neurologic--cranial nerves II through XII grossly intact. Rheumatologic--limited exam due to abdominal pain Psychiatric--normal affect. Results & Data Results & Data ([facility]) Vital Signs (Past 12 Hours) Vital Signs Temp Pulse Pulse Resp BP BP Pulse Ox 06/19/20 00:55 102.6 F H 06/19/20 00:30 123 H 15 136/74 96 06/19/20 00:00 115 H 15 121/80 95 06/18/20 23:43 126/93 06/18/20 23:00 116 H 20 126/93 97 06/18/20 22:50 130 H 22 126/93 97 06/18/20 22:42 103.1 F H 123 H 22 126/93 97 Laboratory Results Laboratory Results WBC 11.28 K/uL (4.8-10.8) H 06/18/20 22:35 RBC 3.43 M/uL (4.2-5.4) L 06/18/20 22:35 Hgb 9.3 g/dL (12.0-16.0) L 06/18/20 22:35 Hct 28.7 % (37-47) L 06/18/20 22:35 MCV 83.7 fL (80-100) 06/18/20 22:35 MCH 27.1 pg (25-34) 06/18/20 22:35 MCHC 32.4 g/dL (32-36) 06/18/20 22:35 RDW Std Deviation 44.1 fL (36.4-46.3) 06/18/20 22:35 RDW Coeff of Angélica 14.4 % (11.5-14.5) 06/18/20 22:35 Plt Count 530 K/uL (130-400) H 06/18/20 22:35 MPV 8.8 fL (7.4-10.4) 06/18/20 22:35 Immature Gran % (Auto) 0.3 % 06/18/20 22:35 Neut % (Auto) 85.4 % 06/18/20 22:35 Lymph % (Auto) 7.0 % 06/18/20 22:35 Banks % (Auto) 6.6 % 06/18/20 22:35 Eos % (Auto) 0.5 % 06/18/20 22:35 Baso % (Auto) 0.2 % 06/18/20 22:35 Neut # (Auto) 9.63 K/uL (1.4-6.5) H 06/18/20 22:35 Lymph # (Auto) 0.79 K/uL (1.2-3.4) L 06/18/20 22:35 Banks # (Auto) 0.75 K/uL (0.11-0.59) H 06/18/20 22:35 Eos # (Auto) 0.06 K/uL (0-0.5) 06/18/20 22:35 Baso # (Auto) 0.02 K/uL (0-0.2) 06/18/20 22:35 Immature Gran # (Auto) 0.03 K/uL (0.00-0.02) H 06/18/20 22:35 PT 11.4 Seconds (9.0-12.0) 06/18/20 22:35 INR 1.1 (0.9-1.1) 06/18/20 22:35 APTT 33.9 Seconds (21.0-31.0) H 06/18/20 22:35 PTT Ratio 1.2 06/18/20 22:35 Sodium 134 mmol/L (136-145) L 06/18/20 22:35 Potassium 3.9 mmol/L (3.5-5.1) 06/18/20 22:35 Chloride 103 mmol/L (98-107) 06/18/20 22:35 Carbon Dioxide 23 mmol/L (21-32) 06/18/20 22:35 Anion Gap 8.0 (3-11) 06/18/20 22:35 BUN 15 mg/dl (7-18) 06/18/20 22:35 Creatinine 0.87 mg/dl (0.6-1.2) 06/18/20 22:35 Est Cr Clr Drug Dosing 107.6 ml/min 06/18/20 22:35 Est GFR ( Amer) 97.3 06/18/20 22:35 Est GFR (Non-Af Amer) 83.9 06/18/20 22:35 BUN/Creatinine Ratio 17.2 (10-20) 06/18/20 22:35 Glucose 123 mg/dl (70-99) H 06/18/20 22:35 Lactate 1.2 mmol/L (0.4-2.0) 06/18/20 22:35 Calcium 9.3 mg/dl (8.5-10.1) 06/18/20 22:35 Magnesium 1.4 mg/dl (1.8-2.4) L 06/18/20 22:35 Total Bilirubin 0.3 mg/dl (0.2-1) 06/18/20 22:35 AST 31 U/L (15-37) 06/18/20 22:35 ALT 30 U/L (12-78) 06/18/20 22:35 Alkaline Phosphatase 180 U/L (45-117) H 06/18/20 22:35 Total Protein 8.3 gm/dl (6.4-8.2) H 06/18/20 22:35 Albumin 2.8 gm/dl (3.4-5.0) L 06/18/20 22:35 Globulin 5.5 gm/dl (2.5-4.0) H 06/18/20 22:35 Albumin/Globulin Ratio 0.5 (0.9-2) L 06/18/20 22:35 Procalcitonin 0.09 ng/ml (0-0.5) 06/18/20 22:35 HCG, Qual Negative (Negative) 06/18/20 22:35 Urine Color Yellow 06/18/20 23:27 Urine Appearance Cloudy (Clear) A 06/18/20 23: Urine pH 5.0 (4.5-7.5) 06/18/20 23: Ur Specific [place]man 1.017 (1.000-1.030) 06/18/20 23:27 Urine Protein 2+ (Negative) H 06/18/20 23:27 Urine Glucose (UA) Negative (Negative) 06/18/20 23:27 Urine Ketones Negative (Negative) 06/18/20 23:27 Urine Blood 3+ (Negative) H 06/18/20 23:27 Urine Nitrite Positive (Negative) A 06/18/20 23:27 Urine Bilirubin Negative (Negative) 06/18/20 23:27 Urine Urobilinogen Negative (Negative) 06/18/20 23:27 Ur Leukocyte Esterase 1+ (Negative) H 06/18/20 23:27 Urine WBC (Auto) 10-30 /hpf (0-5) H 06/18/20 23:27 Urine RBC (Auto) 0-4 /hpf (0-4) 06/18/20 23:27 U Hyaline Cast (Auto) 1-5 /lpf (0-5) 06/18/20 23:27 U Epithel Cells (Auto) >30 /lpf (0-5) H 06/18/20 23:27 Urine Bacteria (Auto) 4+ (Negative) H 06/18/20 23:27 Nasal Screen MRSA (PCR) Negative (Negative) 06/19/20 Unknown COVID-19 Eval Order [facility] 06/19/20 00:54 SARS-CoV-2, RNA, NAAT NEGATIVE (NEGATIVE) 06/19/20 00:54 Diagnostic Findings [facility] Patient: TAMAR LAM (Female) : 80 Status: ER Date: 06/18/20 23:54 Room #: History: PAIN IN LOWER ABD WITH FEVER PT HAS OSTOMY Slices: 747 Priors: Tech: Polo Aguirre @ [phone] Exams: CT ABDOMEN & PELVIS With Contrast Contrast: IV Amt: 92 ML OPTIRAY 320 Accession Numbers: [id number] Preliminary Findings Only See Final Report For Complete Findings CT ABDOMEN & PELVIS With Contrast: Duplicated right kidney. Moderate right hydronephrosis and hydroureter secondary to a large lobulated mixed density solid and cystic lesion measuring 11 x 13 x 10 cm in the right adnexa separate from the uterus and bladder, probably arising from the right ovary. Differential diagnosis includes a large hemorrhagic ovarian cyst versus malignancy. Ovarian torsion is not excluded on this imaging modality. Small amount of high density free fluid in the cul-de-sac. Status post cholecystectomy. Mild intrahepatic biliary dilatation. Common bile duct is dilated measuring up to 14 mm. Etiology is unknown. Findings could be within normal base for postcholecystectomy changes. Recommend correlation with liver function tests. 9 mm hypodense lesion in the mid left kidney is indeterminate. Findings could represent a complicated cyst, however, recommend follow-up to demonstrate interval stability and exclude neoplasm. Status post distal colon resection with a right lower quadrant ileostomy. No bowel wall thickening or obstruction. Status post appendectomy. IVC filter in the infrarenal IVC. No IVC thrombus. Multiple small rounded high density collections in the abdominal wall with surrounding gas probably represent hematomas secondary to subcutaneous injection. Radiologist: Zacarias Hubbard MD Study ready at 23:57 and initial results transmitted at 00:13 *This report constitutes a preliminary interpretation only. Non-acute findings felt to be unrelated to the clinical presentation may not be discussed in this report. The study will be interpreted and a final report will be generated by the local Radiologist the following shift. To reach the hospital radiology department call [phone]. If a discrepancy is found between the preliminary and final interpretations of this study, please notify us via our Client Portal at [email or web address].You can also fax this report with a description of the discrepancy, or include the final report, to our daytime fax number [phone].If faxing, please indicate the severity of discrepancy using one of the following categories: [ ] 1 - Agree/Informational [ ] 2 - Unlikely to Affect Management [ ] 3 - Possible Eventual Change of Management [ ] 4 - Probable Immediate Change of Management For all other patient related information, please fax us at [phone]. [id number] [facility] Patient: TAMAR LAM (Female) : 80 Status: ER Date: 06/19/20 01:54 Room #: History: pelvic pain. fever Slices: 51 Priors: CT 06/18/20 Tech: Odalys Rothman @ [phone] Exams: US PELVIC/ENDOVAG Contrast: Accession Numbers: [id number] Preliminary Findings Only See Final Report For Complete Findings US PELVIC/ENDOVAG: Large lobulated solid and cystic lesion in the right adnexa measuring 13 x 10 x 9 cm closely abutting the uterus. Both ovaries are not clearly identified. The overall appearance on CT favors to represent a lesion arising from the right ovary. There is arterial and venous flow at the periphery of this lesion. There is lack of flow within the more solid hyperechoic portions of the lesion. Findings are indeterminate. Differential diagnosis includes atypical appearance of a large hemorrhagic cyst, ovarian malignancy or metastasis. An exophytic mass arising from the uterus is a possibility. Torsion is difficult to exclude given the lack of visualization of normal ovarian parenchyma. Small amount of free fluid in the cul-de-sac Radiologist: Zacarias Hubbard MD Study ready at 01:55 and initial results transmitted at 02:12 *This report constitutes a preliminary interpretation only. Non-acute findings felt to be unrelated to the clinical presentation may not be discussed in this report. The study will be interpreted and a final report will be generated by the local Radiologist the following shift. To reach the hospital radiology department call [phone]. If a discrepancy is found between the preliminary and final interpretations of this study, please notify us via our Client Portal at [email or web address].You can also fax this report with a description of the discrepancy, or include the final report, to our daytime fax number [phone].If faxing, please indicate the severity of discrepancy using one of the following categories: [ ] 1 - Agree/Informational [ ] 2 - Unlikely to Affect Management [ ] 3 - Possible Eventual Change of Management [ ] 4 - Probable Immediate Change of Management For all other patient related information, please fax us at [phone]. [id number] Code Status & VTE Plan Code Status Full code VTE Prophylaxis Plan VTE Prophylaxis will be ordered: Yes PG Care Time/CCT Total # of Minutes Spent Total Time Spent with Patient: Total time spent is greater than 50% in coordination of care (as documented) at patient's floor/unit and/or counseling patient: Coding Level of Care Code 35514 Initial Inpt Care Lvl 3 Diagnoses Pyelonephritis N12 Obstructive uropathy N13.9 Pelvic mass R19.00 Pulmonary embolism I26.99 Crohn disease K50.90 Hypothyroidism (acquired) E03.9 Anxiety with depression F41.8 Hypertension I10 Chronic pain syndrome G89.4 Colorectal cancer C19
--- NOTE | 2020-06-19 01:46 | Anesthesiology Consultation ---
Date of Service June 19, 2020 Assessment & Plan (1) Encounter for pre-operative examination: Chart Review Chart Review: Acceptable Risk for Surgery Consults Requested none ASA [id number] Proposed Anesthesia Anesthesia Type: MAC Risk / Benefits Reviewed With: PT / POA / Parent / Guardian, Accepts Plan and Informed Consent Obtained History Surgery Operation Date: 06/19/20 02:00 Proposed Procedures p Cystoscopy - Tomy Rios, DO Height/Weight Height: 5 ft 6 in Weight: 107.4 kg Allergies Allergy/AdvReac Type Severity Reaction Status Date / Time vancomycin Allergy Unknown Throat Verified 06/18/20 22:43 closes ibuprofen AdvReac Unknown Crohns Verified 06/18/20 22:43 flare Medications Home Medications Medication Instructions Recorded Confirmed Last Taken acetaminophen 650 mg PO Q4H PRN 06/18/20 06/18/20 Unknown alprazolam 0.25 mg PO TID PRN 06/18/20 06/18/20 Unknown amlodipine 5 mg PO DAILY 06/18/20 06/18/20 Unknown ascorbic acid (vitamin C) 500 mg PO BID 06/18/20 06/18/20 Unknown azathioprine 50 mg PO DAILY 06/18/20 06/18/20 Unknown bisacodyl 10 mg MO DAILY PRN 06/18/20 06/18/20 Unknown cholecalciferol (vitamin D3) 50 mcg PO DAILY 06/18/20 06/18/20 Unknown [Vitamin D3] clotrimazole 1 appful VAGINAL HS 06/18/20 06/18/20 Unknown docusate sodium 100 mg PO BID 06/18/20 06/18/20 Unknown enoxaparin 120 mg SUBCUT BID 06/18/20 06/18/20 Unknown famotidine 20 mg PO DAILY 06/18/20 06/18/20 Unknown fluoxetine 60 mg PO DAILY 06/18/20 06/18/20 Unknown gabapentin 200 mg PO DAILY 06/18/20 06/18/20 Unknown levothyroxine 100 mcg PO DAILY 06/18/20 06/18/20 Unknown lisinopril 20 mg PO DAILY 06/18/20 06/18/20 Unknown magnesium hydroxide [Milk of 30 ml PO DAILY PRN 06/18/20 06/18/20 Unknown Magnesia] melatonin 3 mg PO HS 06/18/20 06/18/20 Unknown norethindrone acetate 5 mg PO DAILY 06/18/20 06/18/20 Unknown nystatin 1 applic TOPICAL BID PRN 06/18/20 06/18/20 Unknown oxycodone 20 mg PO Q4H PRN 06/18/20 06/18/20 Unknown oxycodone 40 mg PO Q12H 06/18/20 06/18/20 Unknown pantoprazole 40 mg PO DAILYBB 06/18/20 06/18/20 Unknown polyethylene glycol 3350 17 g PO DAILY PRN 06/18/20 06/18/20 Unknown prochlorperazine maleate 5 mg PO Q6H PRN 06/18/20 06/18/20 Unknown sennosides-docusate sodium 1 tab PO DIRECTED PRN 06/18/20 06/18/20 Unknown [Senokot-S] sodium phosphates [Fleet Enema] 133 ml MO DAILY PRN 06/18/20 06/18/20 Unknown trazodone 200 mg PO HS PRN 06/18/20 06/18/20 Unknown zinc sulfate 220 mg PO DAILY 06/18/20 06/18/20 Unknown Active Medications Generic Name Dose Route Start Last Admin Trade Name Freq PRN Reason Stop Dose Admin Hydromorphone HCl 1 mg 06/18/20 22:41 06/19/20 01:01 Hydromorphone Inj 1 Mg/Ml Syringe IV 07/02/20 22:40 1 mg Q15M PRN Administration Pain Sodium Chloride 1,000 mls @ 150 mls/hr 06/18/20 22:45 06/18/20 23:59 Nss 1000ml IV 07/18/20 22:44 150 mls/hr .Q6H40M GARCÍA Administration NPO Date Last Intake of Fluids: 06/18/20 Time Last Intake of Fluids: 15:30 Date Last Intake of Solids: 06/17/20 Past Medical History Medical History (Updated 06/19/20 @ 01:49 by Chidi Roa DO) Colorectal cancer Crohn disease Pulmonary embolism Exercise / Class Metabolic Activity II 4-5 Yardwork/Stairs/Walk up hill Past Anesthesia History No Hx of Anesthesia Complications and No Family Hx of Anesthesia Complications History of PONV No Hx of PONV and No Hx of Motion Sickness Social History Smoking Status: Never smoker Physical Exam Vital Signs Last Vital Signs Temp 102.6 F H 06/19/20 00:55 Pulse 123 H 06/19/20 00:30 Resp 15 06/19/20 00:30 BP 136/74 06/19/20 00:30 Pulse Ox 96 06/19/20 00:30 ENMT Mouth: no dentition abnormality Thyromental Distance: > or= 3.5 Finger Breadths Mallampati Class: II Neck normal visual inspection Respiratory normal respiratory effort Auscultation: lungs clear to auscultation bilaterally Cardiovascular Rate/Rhythm: regular rhythm and + tachycardic Testing Laboratory Results 06/18/20 22:35 06/18/20 22:35 PT 11.4 Seconds (9.0-12.0) 06/18/20 22: INR 1.1 (0.9-1.1) 06/18/20 22: APTT 33.9 Seconds (21.0-31.0) H 06/18/20 22:35 Urine Color Yellow 06/18/20 23: Urine Appearance Cloudy (Clear) A 06/18/20 23: Urine pH 5.0 (4.5-7.5) 06/18/20 23: Ur Specific [place] 1.017 (1.000-1.030) 06/18/20 23: Urine Protein 2+ (Negative) H 06/18/20 23: Urine Glucose (UA) Negative (Negative) 06/18/20 23: Urine Ketones Negative (Negative) 06/18/20 23: Urine Nitrite Positive (Negative) A 06/18/20 23: Ur Leukocyte Esterase 1+ (Negative) H 06/18/20 23: Urine WBC (Auto) 10-30 /hpf (0-5) H 06/18/20 23:27 Urine RBC (Auto) 0-4 /hpf (0-4) 06/18/20: U Hyaline Cast (Auto) 1-5 /lpf (0-5) 06/18/20 23: U Epithel Cells (Auto) >30 /lpf (0-5) H 06/18/20 23: Urine Bacteria (Auto) 4+ (Negative) H 06/18/20 23:
[2020-06-19 01:47] LABS: Pregnancy Test, Serum Negative (Negative)
--- NOTE | 2020-06-19 02:35 | Operative Report ---
PG Post Operative Report Pre & Post Diagnosis Sepsis, Right Ureteral Obstruction/Hydronephrosis Same Operation Date: 06/19/20 02:00 <No data on this case meets the specified criteria> I identified the patient and participated in the time-out.: Yes Procedure Cystoscopy with right retrograde pyelogram, aspiration of urine, and stent placement. Operation Date: 06/19/20 02:00 <No data on this case meets the specified criteria> Surgeon Tomy Rios, II, DO Salmon Troll Fisher None Estimated Blood Loss 1 Findings Consistent with Post-Op Diagnosis Stent placed in good position. Partial duplicated right system. Specimens None Drains 6 Fr Multilength without tether 18 Fr Coude Catheter Anesthesia Type MAC Complications none Disposition Disposition: Recovery Room Indications Patient with obstruction and sepsis, likely from external compression of ureter by pelvic fluid collection vs mass. Risks and benefits discussed at length. Description of Procedure Patient was consented and brought back to the operating room. Patient was placed under anesthesia in the supine position and moved to the dorsal lithotomy position. Patient was prepped and draped in the regular sterile fashion. A time out was completed. A 30degree Cystoscope was placed into the bladder and the entire bladder was examined. The UO's were identified. The UO was cannulized with a catheter, urine was aspirated from the renal pelvis, and a retrograde pyelogram was completed. A wire was then placed and entered into the upper pole calyx. 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 With the wire in place, a 6 Fr Double J stent was placed. It was confirmed with fluoroscopy. With the stent in place, an 18 Fr Catheter was placed and then the bladder was emptied after the scope was removed. The patient was cleaned, aroused from anesthesia, and transferred to the pacu in stable condition having tolerated the procedure well with no complications. I was present and participated in all aspects of the procedure. The patient will be monitored in the PACU until transferred. I attest to the content of the Intraoperative Record and any orders documented therein. Any exceptions are noted below.
--- NOTE | 2020-06-19 03:15 | Anesthesiology Progress Note ---
Date of Service June 19, 2020 Anesthesia Post Procedure Vital Signs Vital Signs: Temp Pulse Pulse Pulse Resp BP BP 06/19/20 03:10 98.6 F 110 H 26 H 126/72 06/19/20 03:00 98.6 F 112 H 28 H 129/82 06/19/20 02:50 105 H 24 127/72 06/19/20 02:42 97.9 F 107 H 26 H 124/78 06/19/20 00:55 102.6 F H 06/19/20 00:30 123 H 15 136/74 06/19/20 00:00 115 H 15 121/80 06/18/20 23:43 126/93 06/18/20 23:00 116 H 20 06/18/20 22:50 130 H 22 06/18/20 22:42 103.1 F H 123 H 22 126/93 BP Pulse Ox 06/19/20 03:10 96 06/19/20 03:00 97 06/19/20 02:50 100 06/19/20 02:42 100 06/19/20 00:55 06/19/20 00:30 96 06/19/20 00:00 95 06/18/20 23:43 06/18/20 23:00 126/93 97 06/18/20 22:50 126/93 97 06/18/20 22:42 97 Pain Intensity Right Abdomen: Pain Intensity: 7 Transfer of Care Handoff Completed per policy Notes Mental Status: alert / awake / arousable and participated in evaluation Patient Amnestic to Procedure: Yes Nausea / Vomiting: adequately controlled Pain: adequately controlled Airway Patency, RR, SpO2: stable & adequate BP & HR: stable & adequate Hydration State: stable & adequate Anesthetic Complications: no major complications apparent and Pt Satisfied with anesthetic care
[2020-06-19] MEDS ORDERED: DOCUSATE SODIUM/SENNA 50/8.6MG TAB PO PRN (03:45)
[2020-06-19] MEDS ORDERED: traZODone HCL 100 MG TAB PO PRN (03:45)
[2020-06-19] MEDS ORDERED: MAGNESIUM HYDROXIDE SUSP 30 ML UDC PO PRN (03:45)
[2020-06-19] MEDS ORDERED: SOD PHOSPHATE/SOD BIPHOSPHATE ENEMA 132 ML BTL PR PRN (03:45)
[2020-06-19] MEDS ORDERED: POLYETHYLENE (MIRALAX) 17 GM PACK PO PRN (03:45)
[2020-06-19] MEDS ORDERED: bisacodyL 10 MG SUPP PR PRN (03:45)
[2020-06-19] MEDS: NSS + 20MEQ KCL 20 MEQ/1,000 ML BAG IV SCH ×3 (04:36→21:12)
[2020-06-19] MEDS: LEVOTHYROXINE SODIUM 100 MCG TABLET PO SCH (04:36)
[2020-06-19] MEDS: PANTOprazole 40 MG TAB PO SCH (04:36)
[2020-06-19] MEDS: oxyCODONE HCL 20 MG TABCR (OxyCONTIN) PO SCH ×2 (04:36→20:30)
[2020-06-19] MEDS: ALPRAZolam 0.25 MG TABLET PO PRN ×2 (04:39→11:17)
[2020-06-19] MEDS: ACETAMINOPHEN 325 MG TAB PO PRN ×3 (04:40→21:39)
[2020-06-19] MEDS: oxyCODONE HCL IR 5 MG TAB (IMMEDIATE RELEASE) PO PRN ×2 (05:35→15:22)
--- NOTE | 2020-06-19 07:04 | XRay Report ---
XR chest 1V portable HISTORY: 39 years-old Female SEPSIS acute sepsis COMPARISON: None TECHNIQUE: Portable AP view of the chest FINDINGS: Cardiomediastinal and hilar silhouettes are within normal limits. No pneumothorax, pleural effusion, airspace consolidation or overt pulmonary edema. Right IJ Bviwxj-t-Olaq catheter is noted with distal tip terminating in the expected location of the inferior SVC. Fusion hardware of the lower thoracic spine. IMPRESSION: No acute process. ACT 112: Negative or not required by law. The above report was generated using voice recognition software. It may contain grammatical, syntax o r spelling errors. Electronically signed by: Andres Dobbins M.D. 06/19/2020 7:03 AM
[2020-06-19] MEDS ORDERED: DIATRIZOATE MEGLUMINE 30% 100ML VIAL INSTIL PRN (07:08)
[2020-06-19] MEDS: ONDANSETRON INJ 2 MG/ML 2 ML VIAL IV PRN ×2 (07:31→16:29)
--- NOTE | 2020-06-19 07:33 | CT Scan Report ---
ABDOMEN AND PELVIS CT WITH IV CONTRAST CT DOSE: 1164.75 mGy.cm HISTORY: Right lower quadrant abdominal pain. Fever. TECHNIQUE: Multiaxial CT images of the abdomen and pelvis were performed following the use of intrave nous contrast. A dose lowering technique was utilized adhering to the principles of ALARA. COMPARISON STUDY: None. FINDINGS: The lung bases are clear. A tip of a catheter seen within the right atrium. No pneumoperito neum. No pneumatosis. T12-L1 posterior fusion with pedicle screws and rods. Cholecystectomy. No hepat ic or splenic masses. The pancreas and adrenal glands are unremarkable. Dilated common bile duct ingrid uring up to 1.2 cm. This could be due to the patient's post cholecystectomy state. Normal caliber abd ominal aorta. Subcentimeter retroperitoneal lymph nodes are noted. An IVC filter is present. There is a punctate nonobstructing stone within the right kidney. Moderate right cortical renal scarring. The re is moderate right hydroureteronephrosis to the level of the iliac vessels. A large right adnexal m ass compressing the distal right ureter which accounts for the nephrosis. Questionable small amount o f debris or soft tissue within the mid to distal right ureter best seen on image 276. No significant left-sided hydronephrosis. The bladder is decompressed. This may account for the bladder wall thicken ing. The uterus is displaced to the left and there is associated mass effect from the right adnexal m ass. This right adnexal lesion measures approximately 11.2 x 9.4 cm and demonstrates both solid and c ystic components. Trace pelvic free fluid. There is also a small amount of fluid along the left parac olic gutter. The appendix appears surgically absent. The right lower quadrant ileostomy. No dilated l oops of bowel to suggest an obstruction. Soft tissue nodularity and gas within the subcutaneous fat o f the lower abdominal wall favors prior medication injection. Some of these appear to represent small subcutaneous hematomas. This right adnexal mass demonstrates both solid and cystic components. The n ormal right ovary is not identified. The left ovary is unremarkable. 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 There is an indeterminate 9 mm hypodense lesion within the left kidney on image 150. IMPRESSION: 1. 11.2 x 9.4 cm right adnexal mass demonstrate both solid and cystic components. This compresses the distal right ureter results in moderate right hydroureteronephrosis. This mass could be ovarian give n the location. A primary ovarian neoplasm or metastatic disease would be the diagnosis of exclusion. A large hemorrhagic cyst or ovarian torsion could also a similar appearance but is considered less l ikely. Follow-up pelvic ultrasound recommended. 2. Prior cholecystectomy. Dilated common bile duct which could be due to the patient's postcholecyste ctomy state. 3. Possible small amount of debris or soft tissue within the mid to distal right ureter as described above. This could be due to the stasis from the distal obstruction. Follow-up urology consultation re commended. 4. An indeterminate 9 mm hypodense lesion within the left kidney. This could represent a hyperdense c yst. This also bears watching future examinations. 5. Postoperative changes as described above. ACT 112: Positive. There are findings on this exam that require communication between the performing entity and the patient following Patient Test Result Information Act ([place] Act 112) guidelines. Electronically signed by: Joshua Hernandez M.D. 06/19/2020 7:32 AM
--- NOTE | 2020-06-19 07:40 | Fluoroscopy Report ---
FL retrograde includes kub CLINICAL HISTORY: Right-sided stent placement. COMPARISON STUDY: None. FLUOROSCOPY TIME: 54 seconds. FINDINGS: 4 fluoroscopic spot images of the abdomen were submitted. There is retrograde opacification of the dilated right renal collecting system followed by placement of a right ureteral stent. The ur eteral stent appears in good position. IMPRESSION: Fluoroscopy provided for right ureteral stent placement which appears in good position. ACT 112: Negative or not required by law. Electronically signed by: Joshua Hernandez M.D. 06/19/2020 7:39 AM
[2020-06-19] MEDS: HYDROmorphone INJ 0.5 MG/0.5 ML SYR IV PRN ×2 (08:21→16:30)
[2020-06-19] MEDS: CHOLECALCIFEROL 1,000 UNITS 25 MCG TAB PO SCH (08:22)
[2020-06-19] MEDS: NORETHINDRONE 5 MG TAB PO SCH (08:23)
[2020-06-19] MEDS: FAMOTIDINE 20 MG TAB PO SCH (08:23)
[2020-06-19] MEDS: ASCORBIC ACID 500 MG TAB PO SCH ×2 (08:23→20:31)
[2020-06-19] MEDS: ZINC SULFATE 220 MG CAPSULE PO SCH (08:23)
[2020-06-19] MEDS: azaTHIOprine 50 MG TAB PO SCH (08:23)
[2020-06-19] MEDS: GABAPENTIN 100 MG CAP PO SCH (08:23)
[2020-06-19] MEDS: FLUoxetine HCL 20 MG CAP PO SCH (08:23)
[2020-06-19] MEDS: amLODIPine BESYLATE 5 MG TAB PO SCH (08:23)
[2020-06-19] MEDS: DOCUSATE SODIUM 100 MG CAP PO SCH ×2 (08:24→20:32)
[2020-06-19] MEDS: CEFEPIME 2,000 MG in SYRINGE 0 ML IV SCH ×2 (10:32→21:12)
--- NOTE | 2020-06-19 16:36 | OB/GYN Consultation ---
Date of Consultation June 19, 2020 Assessment & Plan (1) Pelvic mass: Potential etiologies for pelvic mass include: ovarian neoplasm vs bowel neoplasm (given her recent colon cancer history) vs pedunculated uterine fibroid. Out of concern for potential malignancy, given imaging results and size of mass and her recent colon cancer history, would recommend that surgical management take place at a location with gynecologic oncology. Depending on clinical course during this admission, could either refer as outpatient upon discharge or admitting team could consider transfer when more stable. Patient's colon cancer surgeons are at [facility], and in conversation with patient, she would prefer to follow up with [facility] oncology at [facility], to allow involvement of her colon surgeons if needed. I have asked [facility] office to begin referral process to [facility] oncology at [place]. History of Present Illness Reason for Consultation: pelvic mass Requesting Physician: Dr Zamorano Attending Physician: Ben Zamorano History of Present Illness 39yo who was admitted last night after presentation to ER with pyelonephritis and sepsis and underwent emergent stent placement by urology. She had previously been admitted to [facility] for similar symptoms. She has a known pelvic mass - states she had a auto garage mechanic in [place] who was monitoring this, but has more recently moved to [place] and has not yet followed up locally for this. She has a significant medical history, particularly colon cancer with ostomy and chemo, finished chemo 3 months ago at [facility]. She additionally broke multiple bones in her foot after a fall and had been living at [facility] for rehabilitation prior to this hospitalization. Imaging of the pelvic mass reveals 11cm solid and cystic mass - appears right adnexal on CT scan read. Allergies Allergy/AdvReac Type Severity Reaction Status Date / Time vancomycin Allergy Unknown Throat Verified 06/18/20 22:43 closes ibuprofen AdvReac Unknown Crohns Verified 06/18/20 22:43 flare Home Medications Medication Instructions Recorded Confirmed Type acetaminophen 650 mg PO Q4H PRN 06/18/20 06/18/20 History alprazolam 0.25 mg PO TID PRN 06/18/20 06/18/20 History amlodipine 5 mg PO DAILY 06/18/20 06/18/20 History ascorbic acid (vitamin C) 500 mg PO BID 06/18/20 06/18/20 History azathioprine 50 mg PO DAILY 06/18/20 06/18/20 History bisacodyl 10 mg [place] DAILY PRN 06/18/20 06/18/20 History cholecalciferol (vitamin D3) 50 mcg PO DAILY 06/18/20 06/18/20 History [Vitamin D3] clotrimazole 1 appful VAGINAL HS 06/18/20 06/18/20 History docusate sodium 100 mg PO BID 06/18/20 06/18/20 History enoxaparin 120 mg SUBCUT BID 06/18/20 06/18/20 History famotidine 20 mg PO DAILY 06/18/20 06/18/20 History fluoxetine 60 mg PO DAILY 06/18/20 06/18/20 History gabapentin 200 mg PO DAILY 06/18/20 06/18/20 History levothyroxine 100 mcg PO DAILY 06/18/20 06/18/20 History lisinopril 20 mg PO DAILY 06/18/20 06/18/20 History magnesium hydroxide [Milk of 30 ml PO DAILY PRN 06/18/20 06/18/20 History Magnesia] melatonin 3 mg PO HS 06/18/20 06/18/20 History norethindrone acetate 5 mg PO DAILY 06/18/20 06/18/20 History nystatin 1 applic TOPICAL BID PRN 06/18/20 06/18/20 History oxycodone 20 mg PO Q4H PRN 06/18/20 06/18/20 History oxycodone 40 mg PO Q12H 06/18/20 06/18/20 History pantoprazole 40 mg PO DAILYBB 06/18/20 06/18/20 History polyethylene glycol 3350 17 g PO DAILY PRN 06/18/20 06/18/20 History prochlorperazine maleate 5 mg PO Q6H PRN 06/18/20 06/18/20 History sennosides-docusate sodium 1 tab PO DIRECTED PRN 06/18/20 06/18/20 History [Senokot-S] sodium phosphates [Fleet Enema] 133 ml [place] DAILY PRN 06/18/20 06/18/20 History trazodone 200 mg PO HS PRN 06/18/20 06/18/20 History zinc sulfate 220 mg PO DAILY 06/18/20 06/18/20 History Patient History Medical History Colorectal cancer Crohn disease Pulmonary embolism Social History Smoking Status: Never smoker Hx Alcohol Use: Yes Alcohol type: wine Hx Substance Use: No Preferred Language: Indonesian Communication Ability: Effective [employer] Required: No Beliefs That Will Affect Care: None Current Living Situation: Family Feels Safe at Home: Yes Assistive Devices: None Physical Exam Physical Exam: Gen: AAOx3 L: normal nonlabored respirations Abd: soft, s/p ostomy, mildy diffusely tender across lower abdomen, right flank Ext: no edema Results & Data ([facility]) Vital Signs (Past 12 Hours) Vital Signs Temp Pulse Pulse Resp BP BP Pulse Ox 06/19/20 12:00 37.4 C 135/65 06/19/20 11:00 38.5 C H 119 H 17 99 06/19/20 10:00 99 H 27 H 96 06/19/20 09:00 98 H 25 H 94 06/19/20 08:06 06/19/20 08:00 108 H 29 H 06/19/20 07:43 37.4 C 105 H 18 140/71 95 06/19/20 07:22 117 H 23 140/71 06/19/20 07:00 110 H 26 H 06/19/20 06:00 120 H 20 06/19/20 05:00 124 H 34 H 94 06/19/20 04:56 37.9 C H 06/19/20 04:00 108 H 26 H 98 06/19/20 03:42 111 H 21 99 06/19/20 03:38 39.4 C H 113 H 26 H 139/70 100 06/19/20 03:37 112 H 15 139/70 100 06/19/20 03:20 116 H 25 H 125/75 96 06/19/20 03:10 37 C 110 H 26 H 126/72 96 06/19/20 03:00 37 C 112 H 28 H 129/82 97 06/19/20 02:50 105 H 24 127/72 100 06/19/20 02:42 36.6 C 107 H 26 H 124/78 100 Pulse Ox 06/19/20 12:00 06/19/20 11:00 06/19/20 10:00 06/19/20 09:00 06/19/20 08:06 96 06/19/20 08:00 06/19/20 07:43 06/19/20 07:22 06/19/20 07:00 06/19/20 06:00 06/19/20 05:00 06/19/20 04:56 06/19/20 04:00 06/19/20 03:42 06/19/20 03:38 06/19/20 03:37 06/19/20 03:20 06/19/20 03:10 06/19/20 03:00 06/19/20 02:50 06/19/20 02:42 PG Care Time/CCT Total # of Minutes Spent Total Time Spent with Patient: Total time spent is greater than 50% in coordination of care (as documented) at patient's floor/unit and/or counseling patient: Coding Level of Care Code 69736 Inpt Consult Level 3 Diagnoses Pelvic mass R19.00
[2020-06-19 16:37] LABS: Basophils # (auto) 0.02 K/uL (0-0.2); Basophils % (auto) 0.1 %; Eosinophils # (auto) 0.01 K/uL (0-0.5); Eosinophils % (auto) 0.1 %; Hemoglobin 8.9 g/dL (12.0-16.0); Immature Granulocytes # (auto) 0.03 K/uL (0.00-0.02); Immature Granulocytes % (auto) 0.2 %; Lymphocytes # (auto) 0.94 K/uL (1.2-3.4); Lymphocytes % (auto) 5.4 %; Mean Corpuscular Hemoglobin 27.4 pg (25-34); Mean Corpuscular Volume 83.1 fL (80-100); Mean Platelet Volume 8.5 fL (7.4-10.4); Monocytes # (auto) 1.35 K/uL (0.11-0.59); Monocytes % (auto) 7.7 %; Neutrophils # (auto) 15.09 K/uL (1.4-6.5); Neutrophils % (auto) 86.5 %; Platelet Count 460 K/uL (130-400); RDW Coefficient of Variation 14.8 % (11.5-14.5); RDW Standard Deviation 45.4 fL (36.4-46.3); Red Blood Count 3.25 M/uL (4.2-5.4); White Blood Count 17.44 K/uL (4.8-10.8)
[2020-06-19 16:58] LABS: Calcium 8.5 mg/dl (8.5-10.1); Creatinine Clr Calc Pharmacy 121.6 ml/min; Est GFR (African American) 112.7; Est GFR (Non-African American) 97.3; Potassium 3.8 mmol/L (3.5-5.1)
[2020-06-19] MEDS ORDERED: PROMETHAZINE HCL 12.5 MG in SODIUM CHLORIDE 0.9% 50 ML IV STA (17:49)
[2020-06-19] MEDS: MELATONIN 3 MG TAB PO SCH (20:30)
[2020-06-19] MEDS: CLOTRIMAZOLE VAGINAL CR 7 APPLN/45 GM TUBE PV SCH (20:32)
[2020-06-19] MEDS: DAPTOmycin 475 MG in SYRINGE 0 ML IV SCH (21:13)
[2020-06-20] MEDS: oxyCODONE HCL IR 5 MG TAB (IMMEDIATE RELEASE) PO PRN ×4 (01:16→18:47)
[2020-06-20] MEDS: ONDANSETRON INJ 2 MG/ML 2 ML VIAL IV PRN ×3 (01:17→19:53)
[2020-06-20] MEDS ORDERED: HEPARIN 100 UNIT/ML 5ML FLUSH FLUSH PRN (01:36)
[2020-06-20] MEDS: HYDROmorphone INJ 0.5 MG/0.5 ML SYR IV PRN ×3 (03:17→23:28)
[2020-06-20] MEDS: ACETAMINOPHEN 325 MG TAB PO PRN ×2 (04:11→19:52)
[2020-06-20] MEDS: NSS + 20MEQ KCL 20 MEQ/1,000 ML BAG IV SCH ×3 (04:23→19:53)
[2020-06-20] MEDS: LEVOTHYROXINE SODIUM 100 MCG TABLET PO SCH (05:55)
[2020-06-20] MEDS: PANTOprazole 40 MG TAB PO SCH (05:55)
--- NOTE | 2020-06-20 06:21 | Electrocardiogram Report ---
Test Reason : Blood Pressure : / mmHG Vent. Rate : 112 BPM Atrial Rate : 112 BPM P-R Int : 168 ms QRS Dur : 074 ms QT Int : 308 ms P-R-T Axes : 052 048 013 degrees QTc Int : 420 ms Sinus tachycardia Possible Left atrial enlargement T wave abnormality, consider anterior ischemia No previous ECGs available Confirmed by Rick Good ([id number]) on 06/20/2020 6:21:18 AM Referred By: REFERRED SELF Confirmed By:Rick Good
--- NOTE | 2020-06-20 07:27 | Ultrasound Report ---
US pelvic limited HISTORY: 39 years-old Female right pelvic mass patient presents with mass of the right hemipelvis. H istory of colon cancer. COMPARISON: CT abdomen and pelvis 06/18/2020 TECHNIQUE: Multiple real-time sonographic images of the deep pelvic structures were obtained transabd ominally and transvaginally assessing grayscale appearance, color and spectral flow. FINDINGS: TRANSABDOMINAL: Decompressed urinary bladder. There is a large prominently solid mass of the right hemipelvis and mid line pelvis with small internal cystic spaces which measures 12.8 x 10.5 x 9.1 cm which extends to th e inferior pelvis adjacent to the uterine cervix. Flow is noted along the periphery of this lesion wi th areas of increased echogenicity. Calcifications of the cervix are noted. The uterus is not well vi sualized secondary to the large complex pelvic mass. The ovaries are also not diagnostically visualiz ed. Small amount of free fluid is noted within the pelvic cul-de-sac. TRANSVAGINAL: Nonvisualization of the uterus and ovaries secondary to the large complex midline mass of the pelvis. IMPRESSION: 1. Large complex predominantly solid mass of the right hemipelvis extending into the midline pelvis m easures up to 12.8 cm and demonstrates areas of vascular flow. Primary differential consideration wou ld be a neoplasm arising from the right adnexal distribution. A large hemorrhagic cyst considered les s likely. On the CT study of same day, this results in mass effect with partial effacement of the eklutna christiano and appears to demonstrate central areas of hemorrhage. Gynecologic surgical consultation recomme nded. 2. Nonvisualization of the ovaries. 3. Small volume free pelvic fluid. ACT 112: Negative or not required by law. The above report was generated using voice recognition software. It may contain grammatical, syntax o r spelling errors. Electronically signed by: Andres Dobbins M.D. 06/19/2020 9:08 AM
[2020-06-20 08:39] LABS: Basophils # (auto) 0.01 K/uL (0-0.2); Basophils % (auto) 0.1 %; Eosinophils # (auto) 0.04 K/uL (0-0.5); Eosinophils % (auto) 0.3 %; Hematocrit (blood only) 23.7 % (37-47); Hemoglobin 7.8 g/dL (12.0-16.0); Immature Granulocytes # (auto) 0.07 K/uL (0.00-0.02); Immature Granulocytes % (auto) 0.4 %; Lymphocytes % (auto) 8.8 %; Mean Corpuscular Hemoglobin 27.6 pg (25-34); Mean Corpuscular Hgb Conc 32.9 g/dL (32-36); Mean Corpuscular Volume 83.7 fL (80-100); Mean Platelet Volume 8.6 fL (7.4-10.4); Monocytes # (auto) 1.17 K/uL (0.11-0.59); Monocytes % (auto) 7.4 %; Neutrophils # (auto) 13.18 K/uL (1.4-6.5); Platelet Count 430 K/uL (130-400); RDW Coefficient of Variation 14.8 % (11.5-14.5); RDW Standard Deviation 45.5 fL (36.4-46.3); Red Blood Count 2.83 M/uL (4.2-5.4); White Blood Count 15.87 K/uL (4.8-10.8)
[2020-06-20] MEDS: oxyCODONE HCL 20 MG TABCR (OxyCONTIN) PO SCH ×2 (08:40→22:14)
[2020-06-20] MEDS: azaTHIOprine 50 MG TAB PO SCH (08:43)
[2020-06-20] MEDS: DOCUSATE SODIUM 100 MG CAP PO SCH ×2 (08:44→22:14)
[2020-06-20] MEDS: NORETHINDRONE 5 MG TAB PO SCH (08:44)
[2020-06-20] MEDS: GABAPENTIN 100 MG CAP PO SCH (08:46)
[2020-06-20] MEDS: amLODIPine BESYLATE 5 MG TAB PO SCH (08:46)
[2020-06-20] MEDS: ASCORBIC ACID 500 MG TAB PO SCH ×2 (08:47→22:14)
[2020-06-20] MEDS: FAMOTIDINE 20 MG TAB PO SCH (08:47)
[2020-06-20] MEDS: FLUoxetine HCL 20 MG CAP PO SCH (08:47)
[2020-06-20] MEDS: ZINC SULFATE 220 MG CAPSULE PO SCH (08:48)
[2020-06-20 09:02] LABS: BUN Creatinine Ratio 11.7 (10-20); Calcium 8.3 mg/dl (8.5-10.1); Creatinine Clr Calc Pharmacy 130.4 ml/min; Est GFR (African American) 120.2; Est GFR (Non-African American) 103.7; Polychromasia 1+; Potassium 3.7 mmol/L (3.5-5.1)
[2020-06-20 09:03] LABS: Toxic Granulation 1+
[2020-06-20] MEDS: CHOLECALCIFEROL 1,000 UNITS 25 MCG TAB PO SCH (10:36)
[2020-06-20] MEDS: CEFEPIME 2,000 MG in SYRINGE 0 ML IV SCH ×2 (10:45→22:15)
--- NOTE | 2020-06-20 13:27 | Urology Progress Note ---
Date of Service June 20, 2020 Assessment & Plan (1) Obstructive uropathy: (2) Sepsis: (3) Pelvic mass: 39yo F admitted with UTI/Pyelo secondary to obstructive uropathy associated with a right adnexal mass. -POD #1 s/p Cystoscopy with right retrograde pyelogram, aspiration of urine, and stent placement by Dr. Rios. -She has been febrile -Labs reviewed, Wbc 15.87 (previous 17.44) and creatinine normal -Urine culture preliminary gram negative bacilli -Continue antibiotics and supportive care, follow cultures -Maintain wu catheter -Will continue to follow Admission and Anticipated Discharge Date Admission Date: June 19, 2020 Subjective POD #1 s/p Cystoscopy with right retrograde pyelogram, aspiration of urine, and stent placement by Dr. Rios. Pt examined at bedside this AM. Awake, resting in bed on arrival. She reports intermittent right flank and back pain. Some nausea, given zofran with some relief. Denies vomiting. Has been febrile. Wu catheter intact, draining yellow urine. Denies dysuria. Chart review: Febrile, TMax 38.3 BP 104/60, P117 Wbc 15.87 Hgb 7.8 Cr 0.73 Urine culture - preliminary gram negative bacilli On IV Daptomycin and Cefepime Wu output overnight - 850ml Review of Systems Constitutional: as per Subjective / HPI Gastrointestinal: as per Subjective / HPI Genitourinary: as per Subjective / HPI Physical Exam Constitutional: well developed and well nourished; no acute distress Respiratory: normal respiratory effort and able to speak in complete sentences Gastrointestinal (Abdomen): Mild right suprapubic/flank tenderness. Ostomy noted to right lower abdomen. Musculoskeletal: Left foot dressing C/D/I Skin: Warm and dry Psychiatric: Orientation: alert, oriented x 3 and cooperative Genitourinary: Wu catheter intact Results & Data ([facility]) Vital Signs (Past 12 Hours) Vital Signs Temp Pulse Pulse Resp BP BP Pulse Ox 06/20/20 12:00 38.1 C H 117 H 20 104/60 95 06/20/20 08:00 96 H 06/20/20 04:09 38.3 C H 112 H 10 L 145/53 H 97 06/20/20 04:00 108 H 35 H 97 06/20/20 02:00 100 H 28 H 100 PG Care Time/CCT Total # of Minutes Spent Total Time Spent with Patient: Total time spent is greater than 50% in coordination of care (as documented) at patient's floor/unit and/or counseling patient: Coding Level of Care Code 14978 Subseq Hosp Care Lvl 2 Diagnoses Obstructive uropathy N13.9 Sepsis A41.9 Pelvic mass R19.00
[2020-06-20] MEDS: PROMETHAZINE HCL 12.5 MG in SODIUM CHLORIDE 0.9% 50 ML IV PRN ×2 (16:06→23:27)
--- NOTE | 2020-06-20 16:10 | XRay Report ---
XR foot LT 2V CLINICAL HISTORY: Postop. Left foot fusion. COMPARISON STUDY: None. FINDINGS: There is a dorsal cortical plate transfixed with screws bridging the first and second tarso metatarsal joints. The hardware appears intact. The alignment is anatomic. There is a nonunited fract ure at the base of the fifth metatarsal. Small plantar heel spur. Dorsal soft tissue swelling within the forefoot. IMPRESSION: 1. Postoperative changes as described above. The hardware appears intact. 2. Nonunited fracture at the base of the fifth metatarsal. ACT 112: Negative or not required by law. Electronically signed by: Joshua Hernandez M.D. 06/20/2020 4:08 PM
[2020-06-20] MEDS: ENOXAPARIN INJ 120 MG/0.8 ML SYR SQ SCH (17:22)
[2020-06-20] MEDS ORDERED: ENOXAPARIN INJ 120 MG/0.8 ML SYR SQ SCH (17:30)
[2020-06-20] MEDS ORDERED: IBUPROFEN 200 MG TAB PO PRN (21:27)
[2020-06-20] MEDS: DAPTOmycin 475 MG in SYRINGE 0 ML IV SCH (22:14)
[2020-06-20] MEDS: MELATONIN 3 MG TAB PO SCH (22:14)
[2020-06-20] MEDS: CLOTRIMAZOLE VAGINAL CR 7 APPLN/45 GM TUBE PV SCH (22:14)
--- NOTE | 2020-06-20 22:35 | Hospitalist Progress Note ---
Date of Service June 20, 2020 Assessment & Plan (1) Pyelonephritis: Pyelonephritis secondary to obstructive uropathy associated with right adnexal mass/status post acute surgery by urology and ureteral stent- Daptomycin and cefepime per an empiric septic protocol NSS 100 mils per hour Consult urology Dr. Rios Awaiting cultures. Labs are mildly improving as well as vitals. Dr. Singh from [facility] was consulted by the ED regarding right lower quadrant mass (2) Obstructive uropathy: See above (3) Pelvic mass: Consult [facility] will recommend followup with [facility] as an outpatient. (4) Pulmonary embolism: will restart lovenox. (5) Crohn disease: Continue usual meds (6) Hypothyroidism (acquired): Hold levothyroxine (7) Anxiety with depression: Continue usual oral meds (8) Hypertension: Holding antihypertensives as she has been relatively hypotensive in the ED (9) Chronic pain syndrome: On graded dosings of oxycodone, with Dilaudid IV for breakthrough (10) Colorectal cancer: Admission and Anticipated Discharge Date Admission Date: June 19, 2020 Subjective 39 yo female is reporting feeling mildly better. Continues to have pain on her right abdomen and back. Pain is 7-9 out of 10 but improves to 4 when she takes pain medicine. Review of Systems Review of Systems: All systems reviewed & are unremarkable except as noted in HPI & below Physical Exam Physical Exam: The patient is awake, alert and oriented 3, well developed and well nourished, normocephalic and atraumatic, lying in bed and in no acute distress. HEENT--PERRL, EOMI, mucous membranes and oropharynx dry. Neck--supple. No JVD. No bruits. Thyroid normal, trachea midline, no michael opathy. Heart--normal S1 and S2. No murmurs, rubs or gallops. Lungs--clear bilaterally, no respiratory distress, no accessory muscle use. Abdomen--normal bowel sounds and soft. Tenderness right lower and lateral quadrants. Nondistended. Extremities--no cyanosis or clubbing. No edema. Dermatologic--normal skin turgor, normal color, no abnormal lymph nodes, no rash. Neurologic--cranial nerves II through XII grossly intact. Rheumatologic--limited exam due to abdominal pain Psychiatric--normal affect. Results & Data Results & Data ([facility]) Vital Signs (Past 12 Hours) Vital Signs Temp Pulse Pulse Resp BP Pulse Ox 06/20/20 22:13 37.4 C 06/20/20 21:08 38.3 C H 103 H 12 110/64 94 06/20/20 19:52 38.3 C H 06/20/20 16:55 37.7 C H 107 H 18 118/72 96 06/20/20 15:24 38.1 C H 114 H 18 109/65 96 06/20/20 12:00 38.1 C H 117 H 20 104/60 95 PG Care Time/CCT Total # of Minutes Spent Total Time Spent with Patient: Total time spent is greater than 50% in coordination of care (as documented) at patient's floor/unit and/or counseling patient: Coding Level of Care Code 32527 Subseq Hosp Care Lvl 3 Diagnoses Pyelonephritis N12 Obstructive uropathy N13.9 Pelvic mass R19.00 Pulmonary embolism I26.99 Crohn disease K50.90 Hypothyroidism (acquired) E03.9 Anxiety with depression F41.8 Hypertension I10 Chronic pain syndrome G89.4 Colorectal cancer C19 Time Spent (min) 35
[2020-06-21] MEDS: oxyCODONE HCL IR 5 MG TAB (IMMEDIATE RELEASE) PO PRN (03:52)
[2020-06-21] MEDS: ONDANSETRON INJ 2 MG/ML 2 ML VIAL IV PRN ×2 (03:53→19:40)
[2020-06-21] MEDS: ENOXAPARIN INJ 120 MG/0.8 ML SYR SQ SCH ×2 (05:51→17:47)
[2020-06-21] MEDS: LEVOTHYROXINE SODIUM 100 MCG TABLET PO SCH (05:51)
[2020-06-21] MEDS: PANTOprazole 40 MG TAB PO SCH (05:51)
[2020-06-21 06:11] LABS: Hemoglobin 7.4 g/dL (12.0-16.0); Mean Corpuscular Hemoglobin 27.1 pg (25-34); Mean Corpuscular Hgb Conc 32.2 g/dL (32-36); Mean Corpuscular Volume 84.2 fL (80-100); Mean Platelet Volume 8.7 fL (7.4-10.4); Platelet Count 413 K/uL (130-400); RDW Coefficient of Variation 15.3 % (11.5-14.5); RDW Standard Deviation 47.9 fL (36.4-46.3); Red Blood Count 2.73 M/uL (4.2-5.4); White Blood Count 12.56 K/uL (4.8-10.8)
[2020-06-21 06:31] LABS: Creatinine Clr Calc Pharmacy 146.5 ml/min; Est GFR (African American) 129.6; Est GFR (Non-African American) 111.8
[2020-06-21] MEDS: HYDROmorphone INJ 0.5 MG/0.5 ML SYR IV PRN ×6 (06:40→23:32)
[2020-06-21] MEDS: NSS + 20MEQ KCL 20 MEQ/1,000 ML BAG IV SCH ×2 (08:19→20:19)
[2020-06-21] MEDS: ASCORBIC ACID 500 MG TAB PO SCH ×2 (08:58→20:19)
[2020-06-21] MEDS: ERTAPENEM SODIUM 1,000 MG in SODIUM CHLORIDE 0.9% 50 ML IV SCH (08:58)
[2020-06-21] MEDS: NORETHINDRONE 5 MG TAB PO SCH (08:58)
[2020-06-21] MEDS: FLUoxetine HCL 20 MG CAP PO SCH (08:59)
[2020-06-21] MEDS: ZINC SULFATE 220 MG CAPSULE PO SCH (08:59)
[2020-06-21] MEDS: FAMOTIDINE 20 MG TAB PO SCH (08:59)
[2020-06-21] MEDS: azaTHIOprine 50 MG TAB PO SCH (09:00)
[2020-06-21] MEDS: CHOLECALCIFEROL 1,000 UNITS 25 MCG TAB PO SCH (09:00)
[2020-06-21] MEDS: amLODIPine BESYLATE 5 MG TAB PO SCH (09:01)
[2020-06-21] MEDS: GABAPENTIN 100 MG CAP PO SCH (09:02)
[2020-06-21] MEDS: oxyCODONE HCL 20 MG TABCR (OxyCONTIN) PO SCH ×2 (09:06→20:19)
[2020-06-21] MEDS: DOCUSATE SODIUM 100 MG CAP PO SCH ×2 (09:36→20:19)
--- NOTE | 2020-06-21 11:10 | Orthopedic Consultation ---
Date of Consultation June 21, 2020 Assessment & Plan (1) Lisfranc fracture: History of ORIF of Lisfranc fracture in [facility] on 05/04/2020. Case discussed with Dr. Conte. With patient having been treated at another facility, he prefers to lengthen the period of time to keeping the sutures in as a precaution. As far as the sutures are concerned, we will reassess the wound this weekend and likely remove them at that point in time. Left foot x-rays noted. Continue splint for now. Nonweightbearing. Fifth metatarsal head nonunion noted. Dr. Conte to assess need for any further work for the fifth metatarsal head vs pt returns to [place] to see original Ortho surgeon. History of Present Illness Reason for Consultation: Question of suture removal left foot Attending Physician: Ben Zamorano History of Present Illness Patient is a 39-year-old white female that we have been asked to see in regards to her left foot. A little over 2 weeks ago, the patient underwent ORIF of a Lisfranc fracture after she had a syncopal episode. When she woke up she had pain in her foot. She was evaluated at [facility] and underwent ORIF. She does not remember the name of the surgeon in [place]. Currently we have been asked to assess if her sutures are ready to be removed from the surgical site. Allergies Allergy/AdvReac Type Severity Reaction Status Date / Time vancomycin Allergy Unknown Throat Verified 06/18/20 22:43 closes ibuprofen AdvReac Unknown Crohns Verified 06/18/20 22:43 flare Home Medications Medication Instructions Recorded Confirmed Type acetaminophen 650 mg PO Q4H PRN 06/18/20 06/18/20 History alprazolam 0.25 mg PO TID PRN 06/18/20 06/18/20 History amlodipine 5 mg PO DAILY 06/18/20 06/18/20 History ascorbic acid (vitamin C) 500 mg PO BID 06/18/20 06/18/20 History azathioprine 50 mg PO DAILY 06/18/20 06/18/20 History bisacodyl 10 mg WI DAILY PRN 06/18/20 06/18/20 History cholecalciferol (vitamin D3) 50 mcg PO DAILY 06/18/20 06/18/20 History [Vitamin D3] clotrimazole 1 appful VAGINAL HS 06/18/20 06/18/20 History docusate sodium 100 mg PO BID 06/18/20 06/18/20 History enoxaparin 120 mg SUBCUT BID 06/18/20 06/18/20 History famotidine 20 mg PO DAILY 06/18/20 06/18/20 History fluoxetine 60 mg PO DAILY 06/18/20 06/18/20 History gabapentin 200 mg PO DAILY 06/18/20 06/18/20 History levothyroxine 100 mcg PO DAILY 06/18/20 06/18/20 History lisinopril 20 mg PO DAILY 06/18/20 06/18/20 History magnesium hydroxide [Milk of 30 ml PO DAILY PRN 06/18/20 06/18/20 History Magnesia] melatonin 3 mg PO HS 06/18/20 06/18/20 History norethindrone acetate 5 mg PO DAILY 06/18/20 06/18/20 History nystatin 1 applic TOPICAL BID PRN 06/18/20 06/18/20 History oxycodone 20 mg PO Q4H PRN 06/18/20 06/18/20 History oxycodone 40 mg PO Q12H 06/18/20 06/18/20 History pantoprazole 40 mg PO DAILYBB 06/18/20 06/18/20 History polyethylene glycol 3350 17 g PO DAILY PRN 06/18/20 06/18/20 History prochlorperazine maleate 5 mg PO Q6H PRN 06/18/20 06/18/20 History sennosides-docusate sodium 1 tab PO DIRECTED PRN 06/18/20 06/18/20 History [Senokot-S] sodium phosphates [Fleet Enema] 133 ml WI DAILY PRN 06/18/20 06/18/20 History trazodone 200 mg PO HS PRN 06/18/20 06/18/20 History zinc sulfate 220 mg PO DAILY 06/18/20 06/18/20 History Patient History Medical History Colorectal cancer Crohn disease Pulmonary embolism Social History Smoking Status: Never smoker Hx Alcohol Use: Yes Alcohol type: wine Hx Substance Use: No Preferred Language: Spanish Communication Ability: Effective Academic Support Assistant Required: No Beliefs That Will Affect Care: None Current Living Situation: Family Feels Safe at Home: Yes Assistive Devices: None Physical Exam Physical Exam: On exam, the patient is awake and alert and oriented. She has no complaints at this time. No acute distress. Pleasant and cooperative. On examination of her left lower extremity, she has a posterior splint in place. This is removed. On examination of her left foot, she has an incision over the dorsum of the foot approximately midline. There was noticeable areas of skin blistering on the medial aspect of the wound with a slight amount of blistering noted on the distal lateral portion. She has a running nylon stitch that has kept the wound closed. The wound appears dry at this time and there is minimal erythema. Mild swelling. Wound redressed and splint reapplied. Sensations intact and cap refill was less than 2 seconds. She was able to take the ankle through gentle range of motion. Results & Data ([facility]) Vital Signs (Past 12 Hours) Vital Signs Temp Pulse Resp BP Pulse Ox 06/21/20 07:02 37.8 C H 95 H 15 116/71 95 06/21/20 03:53 37.5 C Diagnostic Findings Patient: TAMAR LAM Date: 06/19/20#: [id number]: [id number] [id number]: Date: 1980[facility] Zip: [place] [id number]: 39Location: 2SSex: FRoom/Bed: [id number] Phy: Ben Zamorano M.D.Diagnosis: SEPSIS TO TO UTIPri Phy: Nataly Limon CService Date: 06/20/20Fam Phy:Interpreting Phy: Joshua Hernandez MDAdmit Phy: eJrrod Ramon M.D. Ordering Phy: Poncho Peter PA-C cc: ~ XR foot LT 2V CLINICAL HISTORY: Postop. Left foot fusion. COMPARISON STUDY: None. FINDINGS: There is a dorsal cortical plate transfixed with screws bridging the first and second tarsometatarsal joints. The hardware appears intact. The alignment is anatomic. There is a nonunited fracture at the base of the fifth metatarsal. Small plantar heel spur. Dorsal soft tissue swelling within the forefoot. IMPRESSION: 1. Postoperative changes as described above. The hardware appears intact. 2. Nonunited fracture at the base of the fifth metatarsal.
[2020-06-21] MEDS: PROMETHAZINE HCL 12.5 MG in SODIUM CHLORIDE 0.9% 50 ML IV PRN (13:36)
--- NOTE | 2020-06-21 16:43 | Urology Progress Note ---
Date of Service June 21, 2020 Assessment & Plan (1) Pelvic mass: 39yo F admitted with UTI/Pyelo secondary to obstructive uropathy associated with a right adnexal mass. -POD #2 s/p Cystoscopy with right retrograde pyelogram, aspiration of urine, and stent placement by Dr. Rios. -Patient is afebrile -Labs reviewed, Wbc trending down, creatinine stable -Urine culture positive with E.coli ESBL, on IV Ertapenem -Maintain wu catheter -Continue antibiotics and supportive care -Discharge plan uncertain, will continue to follow peripherally -Will arrange outpatient follow-up with urology Admission and Anticipated Discharge Date Admission Date: June 19, 2020 Subjective POD #2 s/p Cystoscopy with right retrograde pyelogram, aspiration of urine, and stent placement by Dr. Rios. Alert, sitting in chair at time of exam. She reports intermittent mild right flank/back pain. Denies fever or chills. Denies nausea/vomiting. Wu catheter intact, draining clear, yellow urine. Denies dysuria. Chart review: Afebrile Wbc 12.56 (previous 15.87) Hgb 7.4 (previous 7.8) Cr 0.65 (previous 0.73) Urine culture - E.coli ESBL On IV Ertapenem Wu output overnight - 850ml Review of Systems Constitutional: as per Subjective / HPI Gastrointestinal: as per Subjective / HPI Genitourinary: as per Subjective / HPI Results & Data ([facility]) Vital Signs (Past 12 Hours) Vital Signs Temp Pulse Pulse Resp BP Pulse Ox 06/21/20 15:09 37.0 C 93 H 14 107/69 97 06/21/20 07:02 37.8 C H 95 H 15 116/71 95 PG Care Time/CCT Total # of Minutes Spent Total Time Spent with Patient: Total time spent is greater than 50% in coordina tion of care (as documented) at patient's floor/unit and/or counseling patient: Coding Level of Care Code 30281 Subseq Hosp Care Lvl 2 Diagnoses Pelvic mass R19.00
--- NOTE | 2020-06-21 18:56 | Hospitalist Progress Note ---
Date of Service June 21, 2020 Assessment & Plan (1) Pyelonephritis: Sepsis secondary to pyelonephritis, POA Pyelonephritis secondary to obstructive uropathy associated with right adnexal mass/status post acute surgery by urology and ureteral stent- Daptomycin and cefepime per an empiric septic protocol NSS 100 mils per hour Consult urology Dr. Rios Cultures are back, multi resistant E ccoli. will switch to ERTAPENEM. transition to bactrim at discharge, complete 14 days of antibiotics Labs are mildly improving as well as vitals. Dr. Singh from [facility] was consulted by the ED regarding right lower quadrant mass (2) Obstructive uropathy: See above (3) Pelvic mass: Consult [facility] will recommend followup with [place] as an outpatient. complained of brownish discharge, will discuss with bobbin painter. (4) Pulmonary embolism: will restart lovenox. (5) Crohn disease: Continue usual meds (6) Hypothyroidism (acquired): Hold levothyroxine (7) Anxiety with depression: Continue usual oral meds (8) Hypertension: Holding antihypertensives as she has been relatively hypotensive in the ED (9) Chronic pain syndrome: On graded dosings of oxycodone, with Dilaudid IV for breakthrough (10) Colorectal cancer: Admission and Anticipated Discharge Date Admission Date: June 19, 2020 Subjective complaining of serous brown vaginal discharge she feels overall better decreased pain Review of Systems Review of Systems: All systems reviewed & are unremarkable except as noted in HPI & below Physical Exam Physical Exam: The patient is awake, alert and oriented 3, well developed and well nourished, normocephalic and atraumatic, lying in bed and in no acute distress. HEENT--PERRL, EOMI, mucous membranes and oropharynx dry. Neck--supple. No JVD. No bruits. Thyroid normal, trachea midline, no adenopathy. Heart--normal S1 and S2. No murmurs, rubs or gallops. Lungs--clear bilaterally, no respiratory distress, no accessory muscle use. Abdomen--normal bowel sounds and soft. Tenderness right lower and lateral quadrants. Nondistended. Extremities--no cyanosis or clubbing. No edema. Dermatologic--normal skin turgor, normal color, no abnormal lymph nodes, no rash. Neurologic--cranial nerves II through XII grossly intact. Rheumatologic--limited exam due to abdominal pain Psychiatric--normal affect. Results & Data Results & Data ([facility]) Vital Signs (Past 12 Hours) Vital Signs Temp Pulse Pulse Resp BP Pulse Ox 06/21/20 15:09 37.0 C 93 H 14 107/69 97 06/21/20 07:02 37.8 C H 95 H 15 116/71 95 PG Care Time/CCT Total # of Minutes Spent Total Time Spent with Patient: Total time spent is greater than 50% in coordination of care (as documented) at patient's floor/unit and/or counseling patient: Coding Level of Care Code 34056 Subseq Hosp Care Lvl 3 Diagnoses Pyelonephritis N12 Obstructive uropathy N13.9 Pelvic mass R19.00 Pulmonary embolism I26.99 Crohn disease K50.90 Hypothyroidism (acquired) E03.9 Anxiety with depression F41.8 Hypertension I10 Chronic pain syndrome G89.4 Colorectal cancer C19 Time Spent (min) 35
[2020-06-21] MEDS: CLOTRIMAZOLE VAGINAL CR 7 APPLN/45 GM TUBE PV SCH (20:18)
[2020-06-21] MEDS: MELATONIN 3 MG TAB PO SCH (20:19)
--- NOTE | 2020-06-21 22:21 | Communication Note ---
Date of Service: June 21, 2020 Got a phone call edmar that I answered at 9:30pm that the team wanted me to "reconsult" given that the patient, per the caller , is experiencing brownish vaginal d/c. Given the clinical situation, which I reviewed in detail, this brownish vaginal d/c would not change our current recommendations and requires no urgent evaluation. It is also very difficult for us to do a proper pelvic exam on any patient in the hospital because of lack of appropriate table for the evaluation. Therefore, would follow this up as an outpatient if she becomes well enough to leave the hospital or at [facility] if she ends up being transferred there. My colleague, Dr. Blackwell, has already been making arrangements for the patient to be seen as an outpatient. IF the bleeding becomes very heavy, filling a pad in less than one hour, soaking it where you could ring it out and bright red, could more urgently evaluate. As she is 39 years old, this may be nothing more than the start of a menses. Please let us know if the bleeding picks up as noted above.
[2020-06-22] MEDS: HYDROmorphone INJ 0.5 MG/0.5 ML SYR IV PRN (05:06)
[2020-06-22] MEDS: ONDANSETRON INJ 2 MG/ML 2 ML VIAL IV PRN (05:06)
[2020-06-22] MEDS: ENOXAPARIN INJ 120 MG/0.8 ML SYR SQ SCH (05:13)
[2020-06-22] MEDS: LEVOTHYROXINE SODIUM 100 MCG TABLET PO SCH (05:15)
[2020-06-22] MEDS: PANTOprazole 40 MG TAB PO SCH (05:16)
[2020-06-22] MEDS: DOCUSATE SODIUM 100 MG CAP PO SCH (05:23)
[2020-06-22] MEDS: NSS + 20MEQ KCL 20 MEQ/1,000 ML BAG IV SCH (07:26)
[2020-06-22] MEDS: oxyCODONE HCL 20 MG TABCR (OxyCONTIN) PO SCH (07:34)
[2020-06-22] MEDS: azaTHIOprine 50 MG TAB PO SCH (07:34)
[2020-06-22] MEDS: ASCORBIC ACID 500 MG TAB PO SCH (07:34)
[2020-06-22] MEDS: GABAPENTIN 100 MG CAP PO SCH (07:34)
[2020-06-22] MEDS: amLODIPine BESYLATE 5 MG TAB PO SCH (07:34)
[2020-06-22] MEDS: ZINC SULFATE 220 MG CAPSULE PO SCH (07:34)
[2020-06-22] MEDS: CHOLECALCIFEROL 1,000 UNITS 25 MCG TAB PO SCH (07:34)
[2020-06-22] MEDS: NORETHINDRONE 5 MG TAB PO SCH (07:34)
[2020-06-22] MEDS: FLUoxetine HCL 20 MG CAP PO SCH (07:34)
[2020-06-22] MEDS: ERTAPENEM SODIUM 1,000 MG in SODIUM CHLORIDE 0.9% 50 ML IV SCH (07:34)
[2020-06-22] MEDS: FAMOTIDINE 20 MG TAB PO SCH (07:44)
[2020-06-22 08:08] LABS: Basophils # (auto) 0.02 K/uL (0-0.2); Basophils % (auto) 0.3 %; Eosinophils # (auto) 0.35 K/uL (0-0.5); Eosinophils % (auto) 4.5 %; Hematocrit (blood only) 23.4 % (37-47); Hemoglobin 7.5 g/dL (12.0-16.0); Immature Granulocytes # (auto) 0.02 K/uL (0.00-0.02); Immature Granulocytes % (auto) 0.3 %; Lymphocytes # (auto) 1.48 K/uL (1.2-3.4); Lymphocytes % (auto) 19.1 %; Mean Corpuscular Hemoglobin 27.2 pg (25-34); Mean Corpuscular Hgb Conc 32.1 g/dL (32-36); Mean Corpuscular Volume 84.8 fL (80-100); Mean Platelet Volume 8.5 fL (7.4-10.4); Monocytes # (auto) 0.44 K/uL (0.11-0.59); Monocytes % (auto) 5.7 %; Neutrophils # (auto) 5.43 K/uL (1.4-6.5); Neutrophils % (auto) 70.1 %; Platelet Count 436 K/uL (130-400); RDW Coefficient of Variation 15.4 % (11.5-14.5); RDW Standard Deviation 48.1 fL (36.4-46.3); Red Blood Count 2.76 M/uL (4.2-5.4); White Blood Count 7.74 K/uL (4.8-10.8)
--- NOTE | 2020-06-22 08:15 | Communication Note ---
Date of Service: June 22, 2020 I stopped by to talk with the patient this am. Patient notes that yes, she has had brownish d/c, but has had it for over 3 months. It has not changed over the last several weeks. She notes she is still menstrual and notes her LMP to be about 2 weeks ago. Notes d/c not copious. Denies any itching, liz blood or foul d/c. Denies hx of vaginal infections. She still continues to note pressure and discomfort in the rlq. She notes that her service consulted obgyn about her cyst. It seems that the patient does not have a good memory of discussing the situation with Dr. Blackwell on the original consult. I reiterated to the patient that she will need the mass removed but that it is not something that we can do here, would need to be done by [facility] at [facility] as that is where her bowel surgeons are. We are helping to arrange this as an outpatient if she is d/c , which she notes she came from rehab. If she does not get well enough for d/c, my need to be transferred facility to facility for care. Explained to the patient that we would evaluate this d/c as an outpatient and that we have limited ability to do an exam here in the hospital. Therefore, the plan remains unchanged.
[2020-06-22 08:34] LABS: Polychromasia 1+
[2020-06-22 08:36] LABS: BUN Creatinine Ratio 6.7 (10-20); Calcium 8.8 mg/dl (8.5-10.1); Creatinine Clr Calc Pharmacy 158.7 ml/min; Est GFR (African American) 133.1; Est GFR (Non-African American) 114.8; Potassium 3.9 mmol/L (3.5-5.1)
--- NOTE | 2020-06-22 09:06 | Urology Progress Note ---
Date of Service June 22, 2020 Assessment & Plan (1) Pelvic mass: (2) Sepsis: (3) Obstructive uropathy: 39yo F admitted with UTI/Pyelo secondary to obstructive uropathy associated with a right adnexal mass. -POD #3 s/p Cystoscopy with right retrograde pyelogram, aspiration of urine, and stent placement by Dr. Rios. -Patient is afebrile -Labs reviewed, Wbc and creatinine normal -Maintain wu catheter -Continue antibiotics and supportive care, OK to transition to PO antibiotics for discharge -Will arrange outpatient follow-up with urology -Thank you for allowing us to participate in the acute care of Ms. Hernández. Please reconsult us with additional questions, concerns or changes in patient status. Admission and Anticipated Discharge Date Admission Date: June 19, 2020 Subjective POD #3 s/p Cystoscopy with right retrograde pyelogram, aspiration of urine, and stent placement by Dr. Rios. Pt examined at bedside this AM. Awake, resting in bed on arrival. She reports intermittent mild right flank/back pain. Denies fever or chills. Denies nausea/vomiting. Wu catheter intact, draining clear, yellow urine. She noted some brownish vaginal discharge; No pain, no odor. Chart review: Afebrile Wbc 7.74 Hgb 7.5 Cr 0.60 Urine culture -E.coli ESBL Review of Systems Constitutional: as per Subjective / HPI Gastrointestinal: as per Subjective / HPI Genitourinary: as per Subjective / HPI Physical Exam Constitutional: well developed and well nourished; no acute distress Respiratory: normal respiratory effort and able to speak in complete sentences Cardiovascular: Extremities: no calf tenderness Gastrointestinal (Abdomen): Mild right suprapubic/flank tenderness. Ostomy noted to right lower abdomen. Musculoskeletal: Head/Neck/Chest: normocephalic Skin: Warm and dry Neurologic: awake; not confused Psychiatric: Orientation: alert, oriented x 3 and cooperative Genitourinary: Wu catheter intact, draining clear, yellow urine Results & Data ([facility]) Vital Signs (Past 12 Hours) Vital Signs Temp Pulse Resp BP BP Pulse Ox 06/22/20 07:19 37.2 C 88 16 134/77 95 06/21/20 23:16 37.3 C 06/21/20 23:08 37.5 C 91 H 18 106/69 96 PG Care Time/CCT Total # of Minutes Spent Total Time Spent with Patient: Total time spent is greater than 50% in coordination of care (as documented) at patient's floor/unit and/or counseling patient: Coding Level of Care Code 87643 Subseq Hosp Care Lvl 2 Diagnoses Pelvic mass R19.00 Sepsis A41.9 Obstructive uropathy N13.9
[2020-06-22] MEDS: oxyCODONE HCL IR 5 MG TAB (IMMEDIATE RELEASE) PO PRN (12:52)
--- NOTE | 2020-06-22 17:24 | Discharge Summary ---
Date of Service June 22, 2020 Admission HPI Per Admitting Provider The patient is a 39-year-old female with a past medical history including sepsis, UTI, bacteremia, colon cancer, Crohn's disease, history of pulmonary embolism, kidney stones, morbid obesity, anxiety, hypertension, depression, peripheral neuropathy, hypothyroidism, chronic pain syndrome and insomnia. She presents to the emergency department with complaint of worsening right-sided abdominal pain and right lower quadrant pain along with fever. She had been admitted to [facility] from 05/24/20-06/13/2020 with acute sepsis due to acute UTI with bacteremia. During that admission she reports that she was told she had a mass in her right lower quadrant that might possibly need to be drained, and that IR was not an option, and that it would likely need to have surgical drainage. Work-up in the emergency department tonight included a CT scan of abdomen and pelvis that showed moderate right hydronephrosis and hydroureter secondary to a large lobulated mixed density solid and cystic lesion measuring 11 x 13 x 10 cm in the right adnexa separate from the uterus and bladder probably arising from the right ovary, with differential diagnosis including a large hemorrhagic ovarian cyst versus malignancy, with ovarian torsion not excluded. An ultrasound of pelvis and endovaginal could still not exclude ovarian torsion. Patient was taken emergently to the OR by urology Dr. Rios for ureteral stent placement. Principal Diagnosis Sepsis from UTI Discharge Exam Constitutional WD/WN, vitals as above Eyes EOM intact bilaterally; no conjunctival abnormality ENMT external ear and nose normal, oropharynx normal Neck trachea midline, no thyromegaly normal visual inspection Respiratory normal respiratory effort, lungs clear to auscultation no respiratory distress Cardiovascular RRR, no murmur, no edema Gastrointestinal (Abdomen) Inspection/Auscultation: abdomen normal to inspection; abdomen not distended Musculoskeletal no cyanosis or clubbing, extremities motor strength 5/5 Skin no rashes, warm and dry Neurologic moves all extremities and awake Psychiatric Orientation: alert, oriented to person and cooperative Discharge Data Allergies Allergy/AdvReac Type Severity Reaction Status Date / Time vancomycin Allergy Unknown Throat Verified 06/18/20 22:43 closes ibuprofen AdvReac Unknown Crohns Verified 06/18/20 22:43 flare Consultations 06/19/20 00:25 ED Decision to Admit Stat 06/19/20 03:45 Consult Case Management - Discharge Planning Routine 06/19/20 08:21 Consult Urology Routine 06/19/20 08:24 Consult Gynecology Routine 06/20/20 08:15 Consult Orthopedic Surgery Routine 06/20/20 14:00 Consult Health Information Management Routine Procedures Performed Operation Date: 06/19/20 02:00 Actual Procedures p Right Stent Placement (Right) - Tomy Rios DO s Cystoscopy, Aspiration, Right Retrograde Pyelogram, (Right) - Tomy Rios DO Ordered Studies 06/18/20 22:41 CT abd pelvis IV con only Urgent 06/19/20 US transvaginal Routine 06/19/20 00:35 US pelvic limited Urgent 06/19/20 01:25 FL retrograde includes kub Routine Hospital Course (1) Pyelonephritis: Sepsis secondary to pyelonephritis, POA - S/p cystoscopy and stent placement by Dr. Rios. - Cultures are back, multi resistant E ccoli. - Switched to ERTAPENEM, then Bactrim on discharge with urology approval. - Will follow up with urology as outpatient. KEEP LUJAN IN PLACE UNTIL FOLLOW- UP! (2) Obstructive uropathy: See above (3) Pelvic mass: Consulted MACHINE MAINTENANCE SERVICER -> Will need to be removed, but needed to be done at [facility]. - Referral made for Raman Fuentes by our rehabilitation technician group. Phone numbers given. (4) Pulmonary embolism: Restarted Lovenox. (5) Crohn disease: Continue usual meds (6) Hypothyroidism (acquired): Continue levothyroxine (7) Anxiety with depression: Continue usual oral meds (8) Hypertension: Held lisinopril on discharge for fairly normal BPs. Otherwise, no changes. (9) Chronic pain syndrome: On graded dosings of oxycodone, with Dilaudid IV for breakthrough (10) Colorectal cancer: Total Time Total Time Spent Total Time Spent (In Minutes): 35 Discharge Plan Discharge Items Patient Disposition: Transfer Inpatient Rehab Fac Reason For Visit: SEPSIS TO TO UTI Discharge Diagnosis: Sepsis from a UTI Activity: Per Instructions section Activity Comment: Continue splint for now. Non-weightbearing. Fifth metatarsal head non-union Weightbearing: Left non-weightbearing Non-emergency contact: Primary Care Provider, Surgeon and Urologist Call non-emergency contact if: your symptoms worsen Follow-up/Referrals: Tomy Rios DO [Physician] - (Please call for follow-up in 1-2 weeks.) Francesco Conte DO [Surgeon] - (Please follow-up in 10-14 days.) Nataly Limon PA-C [Primary Care Provider] - Diet: Heart Healthy Addtl Attending Provider Instructions: You were admitted to the hospital with sepsis from a UTI. The urology team (Dr. Rios) put in a stent and relieved the pressure and allowed the infection to drain. You will need to be on the oral antibiotic (Bactrim 1 DS tablet twice a day by mouth) for another 10 days (2 weeks essent ially). The last day would be July 01, 2020. They would like you to keep the Lujan in place until you see them in the clinic in 1-2 weeks. Please call their office for a follow-up appointment. We did also stop your lisinopril because your blood pressure was normal here. It can be restarted if needed after the Bactrim is complete. I would not take both at the same time. You also had an ORIF surgery on your left foot at [facility]. However, it sounds like you would like to follow up with Dr. Conte and the [facility] team. Please have the stitches removed on Thursday, June 23 (tomorrow). Please follow up with Dr. Conte in 10-14 days. Finally, you have to follow up with [facility] for the pelvic mass. Dr. Raman Moss is the referral doctor for you. The number is [phone] or [phone], but they should also be reaching out to you. Pending Studies at Discharge: No Stand-Alone Forms: My [email or web address] Skilled Items Patient informed of condition?: Yes DNR: No Discharge Level of Care: Acute rehab Communicable Disease: No Discharge Prognosis: Stable Lines: None Urinary Catheter: Yes Medications and DC Order Prescriptions: New sulfamethoxazole-trimethoprim [Bactrim DS] 800-160 mg tablet 1 tab PO BID Qty: 1 RF: 0 Continued acetaminophen 325 mg Tablet 650 mg PO Q4H PRN (Reason: Pain) RF: 0 prochlorperazine maleate 5 mg Tablet 5 mg PO Q6H PRN (Reason: Nausea And Vomiting) RF: 0 sennosides-docusate sodium [Senokot-S] 8.6-50 mg Tablet 1 tab PO DIRECTED PRN (Reason: Constipation) RF: 0 oxycodone 40 mg Tablet Extended Release 12 Hr 40 mg PO Q12H RF: 0 clotrimazole 1 % Cream 1 appful VAGINAL HS RF: 0 azathioprine 50 mg Tablet 50 mg PO DAILY RF: 0 melatonin 3 mg Tablet 3 mg PO HS RF: 0 amlodipine 5 mg Tablet 5 mg PO DAILY RF: 0 levothyroxine 100 mcg Tablet 100 mcg PO DAILY RF: 0 alprazolam 0.25 mg Tablet 0.25 mg PO TID PRN (Reason: Anxiety) RF: 0 famotidine 20 mg Tablet 20 mg PO DAILY RF: 0 magnesium hydroxide [Milk of Magnesia] 400 mg/5 mL Suspension 30 ml PO DAILY PRN (Reason: Constipation) RF: 0 ascorbic acid (vitamin C) 500 mg Tablet 500 mg PO BID RF: 0 trazodone 100 mg Tablet 200 mg PO HS PRN (Reason: Insomnia) RF: 0 bisacodyl 10 mg Suppository 10 mg NJ DAILY PRN (Reason: Constipation) RF: 0 pantoprazole 40 mg Tablet,Delayed Release (Dr/Ec) 40 mg PO DAILYBB RF: 0 Fleet Enema 19-7 gram/118 mL Enema 133 ml NJ DAILY PRN (Reason: Constipation) RF: 0 docusate sodium 100 mg Capsule 100 mg PO BID RF: 0 norethindrone acetate 5 mg Tablet 5 mg PO DAILY RF: 0 gabapentin 100 mg Capsule 200 mg PO DAILY RF: 0 nystatin 100,000 unit/gram Powder 1 applic TOPICAL BID PRN (Reason: Rash) RF: 0 polyethylene glycol 3350 17 gram/dose Powder 17 g PO DAILY PRN (Reason: Constipation) RF: 0 zinc sulfate 220 mg Capsule 220 mg PO DAILY RF: 0 fluoxetine 20 mg Capsule 60 mg PO DAILY RF: 0 oxycodone 5 mg Tablet 20 mg PO Q4H PRN (Reason: Pain) RF: 0 enoxaparin 120 mg/0.8 mL Syringe 120 mg SUBCUT BID RF: 0 cholecalciferol (vitamin D3) [Vitamin D3] 50 mcg (2,000 unit) Capsule 50 mcg PO DAILY RF: 0 Discontinued lisinopril 20 mg Tablet 20 mg PO DAILY RF: 0 Discharge Orders: Discharge Order (Routine); Ordered 06/22/20 Ordered By: Antonino Bagley Admission Data Admit Date/Time: 06/19/20 01:34 Attending Provider: Antonino Bagley Admit Provider: Jerrod Ramon Primary Care Provider: Nataly Limon Other Providers: [facility] ; Tomy Rios ; Lety Blackwell ; Nabil Castillo ; Francesco Conte ; Poncho Peter ; Stacy Martinez ; Maksim Diaz ; Krystal Pavon ; Quinn Ferreira ; Claudy Davis ; Lesli Puente ; Claudy Mane Andrew J. ; Dereje Chandler ; Asim Jimenez ; Eliceo Salazar ; Paramjit Muniz ; Todd Sosa ; Chavez Justice ; Krystal Steele ; Moshe Rahman ; Guilherme Geiger ; Kinga Murillo ; Sascha Chan ; Afia Carrizales ; Antonino Bagley. Other Interventions: Discharge Summary Assessment (RN) Last Done: 06/22/20 12:29 Coding Level of Care Code D/C Day Management >30 mins Diagnoses Pyelonephritis N12 Obstructive uropathy N13.9 Pelvic mass R19.00 Pulmonary embolism I26.99 Crohn disease K50.90 Hypothyroidism (acquired) E03.9 Anxiety with depression F41.8 Hypertension I10 Chronic pain syndrome G89.4 Colorectal cancer C19
== END 2020-06-22 13:00 | DRG 854 ==
LOC: ED 22:11 → SUATTDRO 06-19 01:34 → OR 06-19 02:00 → 1E 06-19 02:01 → SUATTDRO 06-19 02:01 → 2S 06-20 07:22 → 3W 06-20 16:21